=== PATIENT | male | born 1955 | race Caucasian/White ===

== ENCOUNTER 2017-07-14 19:53 | Inpatient (IN) | payer OTHER ==
[~2017-07-14] VITALS: Ht 177.8 cm; Wt 86.4 kg
[2017-07-14] MEDS ORDERED: SOD CHLORIDE 0.9% 1,000 ML IV STA (20:26)
[2017-07-14] MEDS ORDERED: ASPIRIN 81 MG TAB PO ONE (20:30)
[2017-07-14] MEDS ORDERED: ENALAPRILAT 1.25 MG INJ IV ONE (20:30)
[2017-07-14] MEDS ORDERED: NITROGLYCERIN (SL) 0.4 MG TAB SL ONE (20:30)
[2017-07-14 20:55] LABS: BASOPHILS % 0.6 % (0.0-2.0); EOSINOPHILS % 0.6 % (0.0-7.0); HEMATOCRIT 43.7 % (42.0-52.0); HEMOGLOBIN 14.5 g/dl (14.0-18.0); LYMPHOCYTES # 1.5 10^3/ul (0.8-2.9); LYMPHOCYTES % 21.1 % (15.0-51.0); MEAN CORPUSCULAR HEMOGLOBIN 29.7 pg (29.0-33.0); MEAN CORPUSCULAR HGB CONC 33.2 g/dl (32.0-37.0); MEAN CORPUSCULAR VOLUME 89.4 fl (82.0-101.0); MEAN PLATELET VOLUME 10.6 fl (7.4-10.4); MONOCYTE # 0.4 10^3/ul (0.3-0.9); NEUTROPHILS % 71.4 % (39.0-77.0); PLATELET COUNT 273 10^3/UL (140-415); RED BLOOD COUNT 4.89 10^6/ul (4.70-6.10); RED CELL DISTRIBUTION WIDTH 13.1 % (11.5-14.5)
[2017-07-14 21:02] LABS: ALANINE AMINOTRANSFERASE 37 IU/L (13-69); ALBUMIN 4.9 g/dl (3.3-4.9); ALBUMIN/GLOBULIN RATIO 1.63; ALKALINE PHOSPHATASE 101 IU/L (42-121); ANION GAP 18 (8-16); ASPARTATE AMINO TRANSFERASE 49 IU/L (15-46); BILIRUBIN,INDIRECT 0.1 mg/dl (0-1.1); BILIRUBIN,TOTAL 0.1 mg/dl (0.2-1.3); BLOOD UREA NITROGEN 13 mg/dl (7-20); CALCIUM 10.2 mg/dl (8.4-10.2); CARBON DIOXIDE 24 mmol/L (21-31); CHLORIDE 112 mmol/L (97-110); CREATININE 1.14 mg/dl (0.61-1.24); GLUCOSE 84 mg/dl (70-220); POTASSIUM 4.5 mmol/L (3.5-5.1); SODIUM 149 mmol/L (135-144); TOTAL PROTEIN 7.9 g/dl (6.1-8.1)
--- NOTE | 2017-07-14 21:02 | RADRPT ---
PROCEDURE: XR Chest. CLINICAL INDICATION: Abdominal and chest pain. TECHNIQUE: Single frontal view. COMPARISON: None. FINDINGS: There is mild atelectasis at the lung bases. The lungs are otherwise clear. The heart size is normal. There is no pleural effusion. There is no pneumothorax. IMPRESSION: 1. Mild atelectasis at the lung bases. 2. Otherwise normal chest x-ray. RPTAT: QQ .Michael Ron MD, MD Date Time Electronically viewed and signed by .Michael Ron MD, MD on 07/14/2017 21:02 .R/
[2017-07-14 21:13] LABS: B-TYPE NATRIURETIC PEPTIDE 146 PG/ML (0-125); TROPONIN-I < 0.012 ng/ml (0.00-0.12)
[2017-07-14] MEDS ORDERED: ACETAMINOPHEN 500 MG TAB PO ONE (21:41)
[2017-07-14 22:00] VITALS: TEMP 98.8
[2017-07-14] MEDS ORDERED: OXYCODONE/ACETAMINOPHEN (5/325) TAB PO ONE (22:30)
[2017-07-14 22:54] VITALS: PULSE 56
[2017-07-14 22:59] VITALS: Ht 177.8 cm; Wt 86.4 kg
--- NOTE | 2017-07-14 23:04 | ERA ---
ER Documentation Chief Complaint Date/Time DATE: 07/14/17 TIME: 22:58 Chief Complaint 07/12 CP radiating to L arm HPI 62-year-old man presents with pressure-like chest discomfort left-sided radiating down the left arm, he states it feels like there are 2 people sitting on his chest. Symptoms began earlier today while he was working, he works in construction. Patient denies similar episodes. He is a longtime tobacco smoker and continues to chew tobacco but quit cigarettes about a year ago. He denies shortness of breath, no cough, no fevers or chills, no vomiting or diarrhea. ROS All systems reviewed and are negative except as per history of present illness. Medications Home Meds No Active Prescriptions or Reported Meds Allergies Allergies: Coded Allergies: No Known Allergy (Unverified , 07/14/17) PMhx/Soc None FmHx Family History: No diabetes Physical Exam Vitals Vital Signs Date Time Temp Pulse Resp B/P Pulse Ox O2 Delivery O2 Flow Rate FiO2 07/14/17 22:00 98.8 63 11 155/90 99 Nasal Cannula 07/14/17 21:00 98.2 61 16 135/86 100 Room Air Nasal Cannula 07/14/17 19:55 98.8 81 20 131/94 97 Nasal Cannula 07/14/17 19:55 98.8 73 20 131/94 97 Physical Exam GENERAL: Well-developed, well-nourished, appears dehydrated, afebrile HEENT: Dry mucous membranes, pink conjunctiva, no cervical spine tenderness or step-off deformities, no goiter, no jaundice or icterus, extraocular movements intact without pain. No submandibular induration, and no pharyngeal erythema NEURO: Alert and oriented 3, cranial nerves II through XII intact bilaterally, pupils equal round reactive to light, no focal deficits or facial asymmetry, sensation intact distally Strength 5/5 in upper and lower extremities bilaterally CARDIAC: Regular rate and rhythm, no murmurs rubs or gallops LUNGS: Clear bilaterally no wheezing crackles or stridor ABDOMEN: Soft nontender, no guarding, no rigidity, no rebound, no psoas sign no obturator sign. Normoactive bowel sounds SKIN: Warm and dry to touch, no abrasions, contusions, or hematomas, no lacerations, no ecchymosis, no target lesions, and without ulcers EXTREMITIES: No clubbing cyanosis or edema, calves are bilaterally symmetrical, no Homans sign, no popliteal cord sign. Distal pulses equal and bilateral PSYCH: Normal affect without agitation or irritability Result Diagram: 07/14/17199907/14/171999 Results 24 hrs Laboratory Tests Test 07/14/17 20:00 White Blood Count 7.010^3/ul Red Blood Count 4.8910^6/ul Hemoglobin 14.5g/dl Hematocrit 43.7% Mean Corpuscular Volume 89.4fl Mean Corpuscular Hemoglobin 29.7pg Mean Corpuscular Hemoglobin Concent 33.2g/dl Red Cell Distribution Width 13.1% Platelet Count 01411^3/UL Mean Platelet Volume 10.6fl Neutrophils % 71.4% Lymphocytes % 21.1% Monocytes % 6.0% Eosinophils % 0.6% Basophils % 0.6% Nucleated Red Blood Cells % 0.0/100WBC Neutrophils # 5.010^3/ul Lymphocytes # 1.510^3/ul Monocytes # 0.410^3/ul Eosinophils # 0.010^3/ul Basophils # 0.010^3/ul Nucleated Red Blood Cells # 0.010^3/ul Sodium Level 149mmol/L Potassium Level 4.5mmol/L Chloride Level 112mmol/L Carbon Dioxide Level 24mmol/L Anion Gap 18 Blood Urea Nitrogen 13mg/dl Creatinine 1.14mg/dl Glucose Level 84mg/dl Calcium Level 10.2mg/dl Total Bilirubin 0.1mg/dl Direct Bilirubin 0.00mg/dl Indirect Bilirubin 0.1mg/dl Aspartate Amino Transf (AST/SGOT) 49IU/L Alanine Aminotransferase (ALT/SGPT) 37IU/L Alkaline Phosphatase 101IU/L Troponin I < 0.012ng/ml B-Type Natriuretic Peptide 146PG/ML Total Protein 7.9g/dl Albumin 4.9g/dl Globulin 3.00g/dl Albumin/Globulin Ratio 1.63 Lipase 120U/L Current Medications Medications (Trade) Dose Ordered Sig/Brown Route PRN Reason Start Time Stop Time Status Last Admin Dose Admin Aspirin (Aspirin) 324 mg ONCE ONCE PO 07/14/17 20:30 07/14/17 20:31 DC 07/14/17 20:33 Nitroglycerin (Nitroglycerin (Sl Tab) 0.4 Mg) 1 tab ONCE ONCE SL 07/14/17 20:30 07/14/17 20:31 DC 07/14/17 20:32 Enalaprilat 1.25 mg 1.25 mg ONCE ONCE IV 07/14/17 20:30 07/14/17 20:31 DC 07/14/17 20:33 Sodium Chloride (NS) 1,000 ml @ 1,000 mls/hr Q1H STAT IV 07/14/17 20:26 07/14/17 21:25 DC 07/14/17 20:32 Acetaminophen (Tylenol Tab) 1,000 mg ONCE ONCE PO 07/14/17 21:41 07/14/17 21:42 DC 07/14/17 21:48 Procedures/MDM IV line was established patient was placed on cardiac nurse specialist rhythm strip revealed a sinus rhythm at about 80 bpm with upright P and T waves. Patient was afebrile. EKG performed, read by me: 87 bpm, normal sinus rhythm, normal axis, no acute ST segment changes, narrow QRS complex, with good R-wave progression in precordial leads. Chest X-ray 1V Interpreted by me: Soft Tissue: No acute abnormalities Bones: No acute abnormalities Mediastinum/Cardiac Silhouette/Lungs: No acute abnormalities I administered 1 L normal saline patient, aspirin 324 mg p.o. for cardioprotective measures, nitroglycerin 0.4 mg sublingual and enalapril 1.25 mg IV 1 for hypertension. Patient also received Toradol 15 mg IV for pain followed by Percocet 1 tablet p.o. for continued chest pain. CBC and electrolytes are normal, liver function tests were normal, troponin was negative. Patient will be admitted to telemetry setting for continued medical management cardiology consultation. Departure Diagnosis: Primary Impression: Chest pain Qualified Code: R07.9 - Chest pain, unspecified type Additional Impressions: Dehydration Hypertension Qualified Code: I10 - Hypertension, unspecified type Condition: DARRIUS Her MD Jul 14, 2017 23:04
[2017-07-15] VITALS (12 sets, daily range): BP systolic 117–145; BP diastolic 67–95; PULSE 53–72; RESP 17–20
[2017-07-15] MEDS: morphine 2 MG INJ IV PRN ×7 (00:19→23:18)
--- NOTE | 2017-07-15 07:15 | HP ---
Date/Time of Note Date/Time of Note DATE: 07/15/17 TIME: 07:11 Assessment/Plan VTE Prophylaxis VTE Prophylaxis Intervention: heparin Lines/Catheters IV Catheter Type (from Nrs): Peripheral IV Urinary Cath still in place: No Assessment/Plan Assessment/Plan ASSESSMENT 62-year-old male with no significant past medical history who presented with acute onset chest pain, need to rule out ACS PLAN Continue telemetry monitoring Trend troponin 2D echo and cardiology consult Supplemental oxygen, beta-adilene, aspirin with as needed nitro morphine Check A1c, fasting lipid and TSH HPI/ROS Admit Date/Time Admit Date/Time Jul 14, 2017 at 22:05 Hx of Present Illness This is a 62-year-old male with no significant past medical history who presented to the ER complaining of sudden onset of chest pain. Pain was located in the mid chest and slightly left-sided with radiation to his left arm. Denied shortness of breath, nausea, vomiting or diaphoresis. Patient not sure if it is exertional. 1 presents to the ER, vitals stable. First troponin is negative and EKG was no ST-T wave abnormalities. PMH/Family/Social Social History Smoking Status: Former smoker Exam/Review of Systems Vital Signs Vitals Vital Signs Date Time Temp Pulse Resp B/P Pulse Ox O2 Delivery O2 Flow Rate FiO2 07/15/17 04:51 59 07/15/17 04:42 98.0 20 117/72 97 07/14/17 22:00 Nasal Cannula Intake and Output 07/14/17 07/14/17 07/15/17 14:59 22:59 06:59 Intake Total 350 ml Balance 350 ml Exam Constitutional: alert, oriented, well developed Head: atraumatic, normocephalic Eyes: EOMI Respiratory: clear to auscultation, normal air movement Cardiovascular: nl pulses, regular rate and rhythm Gastrointestinal: non-tender, soft Extremities: normal pulses Labs Result Diagram: 07/14/17199907/14/171999 Medications Medications Current Medications Aspirin (Halfprin) 81 mg DAILY PO ; Start 07/15/17 at 09:00 Metoprolol Tartrate (Lopressor) 25 mg BID PO ; Start 07/15/17 at 09:00 Nitroglycerin (Nitroglycerin (Sl Tab) 0.4 Mg) 1 tab Q5M PRN SL ANGINA; Start 07/14/17 at 23:30 Morphine Sulfate (morphine) 2 mg Q4H PRN IV PAIN Last administered on t 04:21; Admin Dose 2 MG; Start 07/14/17 at 23:30 Enoxaparin Sodium (Lovenox) 40 mg DAILY SC ; Start 07/15/17 at 09:00 Nicotine (Nicoderm 21 Mg/ 24hr) 1 patch DAILY TRANSDERM ; Start 07/15/17 at 09: 00 Influenza Virus Vaccine (Fluzone) 0.5 ml ONCE ONCE IM* ; Start 07/16/17 at 09: 00; Stop 07/16/17 at 09:01 TEJAL ALMANZA MD Jul 15, 2017 07:15
[2017-07-15 08:05] LABS: BASOPHIL # 0.1 10^3/ul (0.0-0.1); EOSINOPHILS # 0.1 10^3/ul (0.0-0.5); EOSINOPHILS % 1.8 % (0.0-7.0); HEMATOCRIT 40.1 % (42.0-52.0); LYMPHOCYTES # 1.8 10^3/ul (0.8-2.9); LYMPHOCYTES % 36.2 % (15.0-51.0); MEAN CORPUSCULAR HEMOGLOBIN 29.3 pg (29.0-33.0); MEAN CORPUSCULAR HGB CONC 32.4 g/dl (32.0-37.0); MEAN CORPUSCULAR VOLUME 90.3 fl (82.0-101.0); MEAN PLATELET VOLUME 10.1 fl (7.4-10.4); MONOCYTE # 0.4 10^3/ul (0.3-0.9); MONOCYTES % 8.2 % (0.0-11.0); NEUTROPHIL # 2.6 10^3/ul (1.6-7.5); NEUTROPHILS % 52.6 % (39.0-77.0); PLATELET COUNT 221 10^3/UL (140-415); RED BLOOD COUNT 4.44 10^6/ul (4.70-6.10); RED CELL DISTRIBUTION WIDTH 13.2 % (11.5-14.5); WHITE BLOOD COUNT 4.9 10^3/ul (4.8-10.8)
[2017-07-15] MEDS: ASPIRIN (EC) 81 MG TAB PO SCH (08:23)
[2017-07-15] MEDS: METOPROLOL 25 MG TAB PO SCH ×2 (08:26→20:50)
[2017-07-15] MEDS: NICOTINE (21 MG/24 HR) PATCH TRANSDERM SCH (08:27)
[2017-07-15] MEDS: ENOXAPARIN 40 MG/0.4 ML SYG SC SCH (08:30)
[2017-07-15 08:37] LABS: ALBUMIN 3.6 g/dl (3.3-4.9); ALBUMIN/GLOBULIN RATIO 1.2; BILIRUBIN,INDIRECT 0.1 mg/dl (0-1.1); BILIRUBIN,TOTAL 0.1 mg/dl (0.2-1.3); CALCIUM 9.4 mg/dl (8.4-10.2); CHOL/HDL RATIO 4.8 RATIO; CREATININE 0.97 mg/dl (0.61-1.24); MAGNESIUM 1.9 mg/dl (1.7-2.5); PHOSPHORUS 4.4 mg/dl (2.5-4.9); POTASSIUM 4.1 mmol/L (3.5-5.1); TOTAL PROTEIN 6.6 g/dl (6.1-8.1)
[2017-07-15 09:06] LABS: THYROID STIMULATING HORMONE 5.45 MIU/L (0.465-4.680)
[2017-07-15] MEDS: NITROGLYCERIN (SL) 0.4 MG TAB SL PRN ×2 (10:39→11:05)
--- NOTE | 2017-07-15 14:50 | PN ---
Date/Time of Note Date/Time of Note DATE: 07/15/17 TIME: 14:44 Assessment/Plan VTE Prophylaxis VTE Prophylaxis Intervention: LMWH Lines/Catheters IV [facility]from [facility] Saline Lock Urinary Cath still in place: No Assessment/Plan Assessment/Plan 1. Chest pain, r/o ACS, negative troponin, cardiology consult with Dr. Ortega 2. Tobacco dependence, on nicotine patch 3. DVT prophylaxis: lovenox Subjective 24 Hr Interval Summary Free Text/Dictation still has intermittent chest pain, 5 minutes up to 30 minutes Exam/Review of Systems Vital Signs Vitals Vital Signs Date Time Temp Pulse Resp B/P Pulse Ox O2 Delivery O2 Flow Rate FiO2 07/15/17 12:10 65 07/15/17 11:29 97.8 18 127/81 96 07/15/17 09:46 Nasal Cannula 2.0 Intake and Output 07/14/17 07/14/17 07/15/17 15:00 23:00 07:00 Intake Total 350 ml Balance 350 ml Exam Constitutional: alert, oriented, well developed Psych: nl mood/affect, no complaints Head: atraumatic, normocephalic Eyes: EOMI, PERRL, nl conjunctiva, nl lids ENMT: nl external ears & nose, nl lips & teeth, nl nasal mucosa & septum Neck: non-tender, supple Respiratory: clear to auscultation, normal air movement, No congested cough, No crackles/rales, No diminished breath sounds, No intercostal retraction, No labored breathing, No other, No respirations, No tactile fremitus, No wheezing Cardiovascular: nl pulses, regular rate and rhythm, No S3, No S4, No bruits, No diastolic murmur, No edema, No gallop, No irregular rhythm, No jugular venous distention (JVD), No murmurs/extra sounds, No other, No rub, No systolic murmur Gastrointestinal: nl liver, spleen, non-tender, soft, No ascites, No bowel sounds, No distended, No firm, No hepatomegaly, No mass , No other, No rebound or guarding, No splenomegaly, No surgical scars, No tender Musculoskeletal: nl extremities to inspection Extremities: normal pulses, No calf tenderness, No clubbing, No cyanosis, No edema, No other, No palpable cord, No pitting pedal edema, No tenderness Neurological: STAPLE SIDE LASTER II-XII intact, nl mental status, nl speech, nl strength Skin: nl turgor Lymph: nl lymph nodes Results Result Diagram: 07/15/17 0728 07/15/17 0729 Results 24 hrs Laboratory Tests Test 07/14/17 20:00 07/15/17 02:15 07/15/17 07:28 07/15/17 07:29 White Blood Count 7.0 4.9 # Red Blood Count 4.89 4.44 L Hemoglobin 14.5 13.0 L Hematocrit 43.7 40.1 L Mean Corpuscular Volume 89.4 90.3 Mean Corpuscular Hemoglobin 29.7 29.3 Mean Corpuscular Hemoglobin Concent 33.2 32.4 Red Cell Distribution Width 13.1 13.2 Platelet Count 273 221 Mean Platelet Volume 10.6 H 10.1 Neutrophils % 71.4 52.6 Lymphocytes % 21.1 36.2 Monocytes % 6.0 8.2 Eosinophils % 0.6 1.8 Basophils % 0.6 1.0 Nucleated Red Blood Cells % 0.0 0.0 Neutrophils # 5.0 2.6 Lymphocytes # 1.5 1.8 Monocytes # 0.4 0.4 Eosinophils # 0.0 0.1 Basophils # 0.0 0.1 Nucleated Red Blood Cells # 0.0 0.0 Sodium Level 149 H 141 Potassium Level 4.5 4.1 Chloride Level 112 H 111 H Carbon Dioxide Level 24 25 Anion Gap 18 H 9 # Blood Urea Nitrogen 13 13 Creatinine 1.14 0.97 Glucose Level 84 83 Calcium Level 10.2 9.4 Total Bilirubin 0.1 L 0.1 L Direct Bilirubin 0.00 0.00 Indirect Bilirubin 0.1 0.1 Aspartate Amino Transf (AST/SGOT) 49 H 24 # Alanine Aminotransferase (ALT/SGPT) 37 32 Alkaline Phosphatase 101 71 Troponin I < 0.012 < 0.012 < 0.012 B-Type Natriuretic Peptide 146 H Total Protein 7.9 6.6 # Albumin 4.9 3.6 # Globulin 3.00 3.00 Albumin/Globulin Ratio 1.63 1.20 Lipase 120 Hemoglobin A1c 5.3 Phosphorus Level 4.4 Magnesium Level 1.9 Triglycerides Level 72 Cholesterol Level 178 LDL Cholesterol, Calculated 127 HDL Cholesterol 37 Cholesterol/HDL Ratio 4.8 Thyroid Stimulating Hormone (TSH) 5.450 H Medications Medications Current Medications Aspirin (Halfprin) 81 mg DAILY PO Last administered on 07/15/17 08:23; Admin Dose 81 MG; Start 07/15/17 at 09:00 Metoprolol Tartrate (Lopressor) 25 mg BID PO ; Start 07/15/17 at 09:00 Nitroglycerin (Nitroglycerin (Sl Tab) 0.4 Mg) 1 tab Q5M PRN SL ANGINA Last administered on 07/15/17 11:05; Admin Dose 1 TAB; Start 07/14/17 at 23:30 Morphine Sulfate (morphine) 2 mg Q4H PRN IV PAIN Last administered on 12:35; Admin Dose 2 MG; Start 07/14/17 at 23:30 Enoxaparin Sodium (Lovenox) 40 mg DAILY SC Last administered on 07/15/17 08: 30; Admin Dose 40 MG; Start 07/15/17 at 09:00 Nicotine (Nicoderm 21 Mg/ 24hr) 1 patch DAILY TRANSDERM Last administered on 08:27; Admin Dose 1 PATCH; Start 07/15/17 at 09:00 Influenza Virus Vaccine (Fluzone) 0.5 ml ONCE ONCE IM* ; Start 07/16/17 at 09: 00; Stop 07/16/17 at 09:01 RONALD LIN MD Jul 15, 2017 14:50
[2017-07-15] MEDS: PANTOPRAZOLE 40 MG INJ IV SCH (16:21)
[2017-07-15] MEDS ORDERED: morphine 2 MG INJ IV PRN (17:30)
[2017-07-15] MEDS: ISOSORBIDE DINITRATE 20 MG TAB PO SCH (20:50)
[2017-07-16] VITALS (11 sets, daily range): BP systolic 111–127; BP diastolic 66–82; PULSE 43–73; RESP 16–21
[2017-07-16] MEDS: PANTOPRAZOLE 40 MG INJ IV SCH (05:16)
[2017-07-16] MEDS: morphine 2 MG INJ IV PRN ×5 (05:16→20:53)
[2017-07-16] MEDS: ISOSORBIDE DINITRATE 20 MG TAB PO SCH ×3 (08:36→20:38)
[2017-07-16] MEDS: ASPIRIN (EC) 81 MG TAB PO SCH (08:36)
[2017-07-16] MEDS: NICOTINE (21 MG/24 HR) PATCH TRANSDERM SCH (08:36)
[2017-07-16] MEDS: METOPROLOL 25 MG TAB PO SCH ×2 (08:36→20:38)
[2017-07-16] MEDS: ENOXAPARIN 40 MG/0.4 ML SYG SC SCH (08:38)
[2017-07-16] MEDS ORDERED: INFLUENZA VIRUS VACCINE 0.5 ML (DISPENSING) IM* ONE (09:00)
--- NOTE | 2017-07-16 13:47 | CONS ---
Date/Time of Note Date/Time of Note DATE: 07/16/17 TIME: 13:46 Assessment/Plan Assessment/Plan Additional Assessment/Plan 1. CP - R/O MD, will facilitate stress test for tomorrow as pt still with CP now (trop negative) 2. Abn ECG - non-spc St-T changes 3. HTN - modest Rx Consultation Date/Type/Reason Admit Date/Time Jul 14, 2017 at 22:05 Initial Consult Date 24 HR Interval Summary Free Text/Dictation will facilitate stress test for tomorrow as pt still with CP now (trop negative) ROS: No fever, no chills, no nausea, no vomiting, no diarrhea/constipation No recent weight changes + chest pain, no PND, no orthopnea No dizziness, blurred vision No thirst, no heat or cold intolerance Exam/Review of Systems Vital Signs Vitals Vital Signs Date Time Temp Pulse Resp B/P Pulse Ox O2 Delivery O2 Flow Rate FiO2 07/16/17 12:00 62 07/16/17 12:00 98.0 19 120/72 96 07/15/17 20:00 Nasal Cannula 2.0 Intake and Output 07/15/17 07/15/17 07/16/17 15:00 23:00 07:00 Intake Total 1000 ml 500 ml Balance 1000 ml 500 ml Exam General: WN/WD/NAD, AOx 3 HEENT: Unicetric/atraumatic/EOMI (follow commands) NECK: JVD elevated, no thyromegaly Lymph: no lymphadenopathy HEART: regular with no S3, II/ systolic murmur at apex LUNGS: Coarse sounds ABD: soft, NT, ND, +BS : Intact Neuro: non focal SKIN: chronic changes EXT: trace edema Results Result Diagram: 07/15/1772707/15/17728 Results 24 hrs Laboratory Tests Test 07/15/17 20:45 Troponin I < 0.012 Free Thyroxine 0.87 Medications Medications Current Medications Aspirin (Halfprin) 81 mg DAILY PO Last administered on 07/16/17 08:36; Admin Dose 81 MG; Start 07/15/17 at 09:00 Metoprolol Tartrate (Lopressor) 25 mg BID PO Last administered on 07/15/17 20 :50; Admin Dose 25 MG; Start 07/15/17 at 09:00 Nitroglycerin (Nitroglycerin (Sl Tab) 0.4 Mg) 1 tab Q5M PRN SL ANGINA Last administered on 07/15/17 11:05; Admin Dose 1 TAB; Start 07/14/17 at 23:30 Enoxaparin Sodium (Lovenox) 40 mg DAILY SC Last administered on 07/16/17 08: 38; Admin Dose 40 MG; Start 07/15/17 at 09:00 Nicotine (Nicoderm 21 Mg/ 24hr) 1 patch DAILY TRANSDERM Last administered on 08:36; Admin Dose 1 PATCH; Start 07/15/17 at 09:00 Pantoprazole (Protonix Iv) 40 mg DAILY@06 IV Last administered on 07/16/17 05 :16; Admin Dose 40 MG; Start 07/15/17 at 15:00 Morphine Sulfate (morphine) 2 mg Q3H PRN IV PAIN Last administered on 12:25; Admin Dose 2 MG; Start 07/15/17 at 16:00 Isosorbide Dinitrate (Isordil) 20 mg TID PO Last administered on 07/16/17 12: 25; Admin Dose 20 MG; Start 07/15/17 at 21:00 RUTHIE GREEN MD Jul 16, 2017 13:47
--- NOTE | 2017-07-16 14:28 | PN ---
Date/Time of Note Date/Time of Note DATE: 07/16/17 TIME: 14:26 Assessment/Plan VTE Prophylaxis VTE Prophylaxis Intervention: heparin Lines/Catheters IV Catheter Type (from Nrs): Saline Lock Urinary Cath still in place: No Assessment/Plan Chief Complaint/Hosp Course Patient is a 62-year-old gentleman with no significant past medical history except for nicotine use who presents with chest pain radiating to left arm Assessment and plan Chest pain Left arm pain Substernal pain Tobacco dependence Bradycardia, astigmatic Mild anemia, monitor Subclinical hypothyroidism, monitor -Cardiology consulted, could not perform stress test today due to logistical error, n.p.o. after midnight and reorder stress test -Troponins negative, questionable true cardiac origin of chest pain. Will order IV famotidine, continue Protonix, GI cocktail, Robaxin for possible musculoskeletal -Monitor blood pressure and chest pain -Cardiology recommendations appreciated -Pain control as needed Problems: Subjective 24 Hr Interval Summary Free Text/Dictation intermittent episodes of chest pain Exam/Review of Systems Vital Signs Vitals Vital Signs Date Time Temp Pulse Resp B/P Pulse Ox O2 Delivery O2 Flow Rate FiO2 07/16/17 12:00 62 07/16/17 12:00 98.0 19 120/72 96 07/15/17 20:00 Nasal Cannula 2.0 Intake and Output 07/15/17 07/15/17 07/16/17 15:00 23:00 07:00 Intake Total 1000 ml 500 ml Balance 1000 ml 500 ml Exam Physical exam General: Patient is laying in bed and answers questions appropriately Mentation: Patient is alert and oriented 4, Head: Normocephalic atraumatic Eyes: EOMI, pupils reactive to light Neck: Supple, nontender, midline Respiratory: Clear to auscultation bilaterally Cardiovascular: regular rate, no obvious murmurs Gastrointestinal: non-tender to palpation, bowel sounds heard. Neurological: Moves all extremities spontaneously Skin: No new skin lesions Results Result Diagram: 07/15/1772707/15/17 07 Results 24 hrs Laboratory Tests Test 07/15/17 20:45 Troponin I < 0.012 Free Thyroxine 0.87 Medications Medications Current Medications Aspirin (Halfprin) 81 mg DAILY PO Last administered on 07/16/17t 08:36; Admin Dose 81 MG; Start 07/15/17 at 09:00 Metoprolol Tartrate (Lopressor) 25 mg BID PO Last administered on 07/15/17 20 :50; Admin Dose 25 MG; Start 07/15/17 at 09:00 Nitroglycerin (Nitroglycerin (Sl Tab) 0.4 Mg) 1 tab Q5M PRN SL ANGINA Last administered on 07/15/17 11:05; Admin Dose 1 TAB; Start 07/14/17 at 23:30 Enoxaparin Sodium (Lovenox) 40 mg DAILY SC Last administered on 07/16/17 08: 38; Admin Dose 40 MG; Start 07/15/17 at 09:00 Nicotine (Nicoderm 21 Mg/ 24hr) 1 patch DAILY TRANSDERM Last administered on 08:36; Admin Dose 1 PATCH; Start 07/15/17 at 09:00 Pantoprazole (Protonix Iv) 40 mg DAILY@06 IV Last administered on 07/16/17 05 :16; Admin Dose 40 MG; Start 07/15/17 at 15:00 Morphine Sulfate (morphine) 2 mg Q3H PRN IV PAIN Last administered on 12:25; Admin Dose 2 MG; Start 07/15/17 at 16:00 Isosorbide Dinitrate (Isordil) 20 mg TID PO Last administered on 07/16/17 12: 25; Admin Dose 20 MG; Start 07/15/17 at 21:00 Methocarbamol (Robaxin) 1,000 mg TID PO ; Start 07/16/17 at 21:00 Famotidine (Pepcid Iv) 20 mg ONCE ONCE IV ; Start 07/16/17 at 14:30; Stop at 14:31 Miscellaneous Medication (Gi Cocktail (2)) 40 ml ONCE ONCE PO ; Start at 14:30; Stop 07/16/17 at 14:31 DARRIUS LY Jul 16, 2017 14:28
[2017-07-16] MEDS ORDERED: FAMOTIDINE 20 MG INJ IV ONE (14:30)
[2017-07-16] MEDS ORDERED: LIDOCAINE/MYLANTA 40 ML BTL PO ONE (14:30)
[2017-07-16] MEDS: METHOCARBAMOL 500 MG TAB PO SCH (20:37)
[2017-07-17] VITALS (11 sets, daily range): BP systolic 115–139; BP diastolic 62–85; PULSE 52–75; RESP 18–20
[2017-07-17] MEDS: morphine 2 MG INJ IV PRN ×3 (03:28→11:17)
[2017-07-17] MEDS: PANTOPRAZOLE (EC) 40 MG TAB PO SCH (05:52)
[2017-07-17 06:23] LABS: BASOPHILS % 0.7 % (0.0-2.0); EOSINOPHILS # 0.1 10^3/ul (0.0-0.5); EOSINOPHILS % 1.6 % (0.0-7.0); HEMATOCRIT 40.9 % (42.0-52.0); HEMOGLOBIN 13.5 g/dl (14.0-18.0); LYMPHOCYTES # 1.7 10^3/ul (0.8-2.9); LYMPHOCYTES % 29.6 % (15.0-51.0); MEAN CORPUSCULAR VOLUME 90.9 fl (82.0-101.0); MEAN PLATELET VOLUME 10.3 fl (7.4-10.4); MONOCYTE # 0.5 10^3/ul (0.3-0.9); MONOCYTES % 8.8 % (0.0-11.0); NEUTROPHIL # 3.3 10^3/ul (1.6-7.5); NEUTROPHILS % 58.9 % (39.0-77.0); PLATELET COUNT 221 10^3/UL (140-415); RED CELL DISTRIBUTION WIDTH 13.2 % (11.5-14.5); WHITE BLOOD COUNT 5.6 10^3/ul (4.8-10.8)
[2017-07-17] MEDS: METHOCARBAMOL 500 MG TAB PO SCH ×2 (08:11→12:16)
[2017-07-17] MEDS: ASPIRIN (EC) 81 MG TAB PO SCH (08:11)
[2017-07-17] MEDS: NICOTINE (21 MG/24 HR) PATCH TRANSDERM SCH (08:12)
[2017-07-17] MEDS: METOPROLOL 25 MG TAB PO SCH ×2 (08:12→20:46)
[2017-07-17] MEDS: ISOSORBIDE DINITRATE 20 MG TAB PO SCH ×3 (08:12→20:46)
[2017-07-17] MEDS: ENOXAPARIN 40 MG/0.4 ML SYG SC SCH (08:13)
[2017-07-17 08:42] LABS: CALCIUM 9.4 mg/dl (8.4-10.2); CREATININE 1.08 mg/dl (0.61-1.24); MAGNESIUM 1.9 mg/dl (1.7-2.5); PHOSPHORUS 4.1 mg/dl (2.5-4.9); POTASSIUM 4.5 mmol/L (3.5-5.1)
[2017-07-17] MEDS ORDERED: REGADENOSON 0.4 MG/5 ML SYG ONE (12:34)
--- NOTE | 2017-07-17 13:02 | PN ---
Date/Time of Note Date/Time of Note DATE: 07/17/17 TIME: 13:00 Assessment/Plan VTE Prophylaxis VTE Prophylaxis Intervention: LMWH Lines/Catheters IV Catheter Type (from Nrs): Saline Lock Urinary Cath still in place: No Assessment/Plan Chief Complaint/Hosp Course Patient is a 62-year-old gentleman with no significant past medical history except for nicotine use who presents with chest pain radiating to left arm Assessment and plan Chest pain Left arm pain Substernal pain Tobacco dependence Bradycardia, astigmatic Mild anemia, monitor Subclinical hypothyroidism, monitor -Cardiology consulted, stress test results pending -Troponins negative, questionable true cardiac origin of chest pain. GI cocktail did not help, less likely GI etiology. Will attempt to change robaxin to soma for musculoskeletal. -Monitor blood pressure and chest pain -Cardiology recommendations appreciated -Pain control as needed DISPO: monitor overnight for chest pain Problems: Subjective 24 Hr Interval Summary Free Text/Dictation still has intermittent chest pain. Exam/Review of Systems Vital Signs Vitals Vital Signs Date Time Temp Pulse Resp B/P Pulse Ox O2 Delivery O2 Flow Rate FiO2 07/17/17 12:35 63 07/17/17 11:58 98.2 18 129/79 95 07/16/17 20:00 Nasal Cannula 2.0 Intake and Output 07/16/17 07/16/17 07/17/17 15:00 23:00 07:00 Intake Total 600 ml 240 ml Balance 600 ml 240 ml Exam Physical exam General: Patient is laying in bed and answers questions appropriately Mentation: Patient is alert and oriented 4, Head: Normocephalic atraumatic Eyes: EOMI, pupils reactive to light Neck: Supple, nontender, midline Respiratory: Clear to auscultation bilaterally Cardiovascular: regular rate, no obvious murmurs Gastrointestinal: non-tender to palpation, bowel sounds heard. Neurological: Moves all extremities spontaneously Skin: No new skin lesions Results Result Diagram: 07/17/17 0550 07/17/17 0550 Results 24 hrs Laboratory Tests Test 07/17/17 05:50 White Blood Count 5.6 Red Blood Count 4.50 L Hemoglobin 13.5 L Hematocrit 40.9 L Mean Corpuscular Volume 90.9 Mean Corpuscular Hemoglobin 30.0 Mean Corpuscular Hemoglobin Concent 33.0 Red Cell Distribution Width 13.2 Platelet Count 221 Mean Platelet Volume 10.3 Neutrophils % 58.9 Lymphocytes % 29.6 Monocytes % 8.8 Eosinophils % 1.6 Basophils % 0.7 Nucleated Red Blood Cells % 0.0 Neutrophils # 3.3 Lymphocytes # 1.7 Monocytes # 0.5 Eosinophils # 0.1 Basophils # 0.0 Nucleated Red Blood Cells # 0.0 Sodium Level 144 Potassium Level 4.5 Chloride Level 109 Carbon Dioxide Level 26 Anion Gap 14 Blood Urea Nitrogen 17 Creatinine 1.08 Glucose Level 86 Calcium Level 9.4 Phosphorus Level 4.1 Magnesium Level 1.9 Medications Medications Current Medications Aspirin (Halfprin) 81 mg DAILY PO Last administered on 07/17/17 08:11; Admin Dose 81 MG; Start 07/15/17 at 09:00 Metoprolol Tartrate (Lopressor) 25 mg BID PO Last administered on 07/17/17 08 :12; Admin Dose 25 MG; Start 07/15/17 at 09:00 Nitroglycerin (Nitroglycerin (Sl Tab) 0.4 Mg) 1 tab Q5M PRN SL ANGINA Last administered on 07/15/17 11:05; Admin Dose 1 TAB; Start 07/14/17 at 23:30 Enoxaparin Sodium (Lovenox) 40 mg DAILY SC Last administered on 07/17/17 08: 13; Admin Dose 40 MG; Start 07/15/17 at 09:00 Nicotine (Nicoderm 21 Mg/ 24hr) 1 patch DAILY TRANSDERM Last administered on 08:12; Admin Dose 1 PATCH; Start 07/15/17 at 09:00 Morphine Sulfate (morphine) 2 mg Q3H PRN IV PAIN Last administered on 11:17; Admin Dose 2 MG; Start 07/15/17 at 16:00 Isosorbide Dinitrate (Isordil) 20 mg TID PO Last administered on 07/17/17 12: 15; Admin Dose 20 MG; Start 07/15/17 at 21:00 Methocarbamol (Robaxin) 1,000 mg TID PO Last administered on 07/17/17 12:16; Admin Dose 1,000 MG; Start 07/16/17 at 21:00 Pantoprazole (Protonix Tab) 40 mg DAILY@06 PO ; Start 07/17/17 at 06:00 DARRIUS LY Jul 17, 2017 13:02
[2017-07-17] MEDS: NITROGLYCERIN (SL) 0.4 MG TAB SL PRN ×2 (14:00→14:10)
--- NOTE | 2017-07-17 14:15 | CONS ---
Date/Time of Note Date/Time of Note DATE: 07/17/17 TIME: 14:13 Assessment/Plan Assessment/Plan Additional Assessment/Plan 1. CP - R/O [place], will facilitate stress test for tomorrow as pt still with CP now (trop negative) -SPECT done - will monitor results 2. Abn ECG - non-spc St-T changes 3. HTN - modest Rx, stable now 4. Pain sx - no clear cardiac cause now Consultation Date/Type/Reason Admit Date/Time Jul 14, 2017 at 22:05 24 HR Interval Summary Free Text/Dictation No ectopy on tele - s/p Stres test - will await for results ROS: No fever, no chills, no nausea, no vomiting, no diarrhea/constipation No recent weight changes Inerm chest pain, no PND, no orthopnea No dizziness, blurred vision No thirst, no heat or cold intolerance Exam/Review of Systems Vital Signs Vitals Vital Signs Date Time Temp Pulse Resp B/P Pulse Ox O2 Delivery O2 Flow Rate FiO2 07/17/17 14:00 75 18 115/66 07/17/17 11:58 98.2 95 07/16/17 20:00 Nasal Cannula 2.0 Intake and Output 07/16/17 07/16/17 07/17/17 15:00 23:00 07:00 Intake Total 600 ml 240 ml Balance 600 ml 240 ml Exam General: WN/WD/NAD, AOx 3 HEENT: Unicetric/atraumatic/EOMI (follows commands) NECK: JVD elevated, no thyromegaly Lymph: no lymphadenopathy HEART: regular with no S3, II/ systolic murmur at apex LUNGS: Coarse sounds ABD: soft, NT, ND, +BS : Intact Neuro: non focal SKIN: chronic changes EXT: trace edema Results Result Diagram: 07/17/17 0550 07/17/17 0550 Results 24 hrs Laboratory Tests Test 07/17/17 05:50 White Blood Count 5.6 Red Blood Count 4.50 L Hemoglobin 13.5 L Hematocrit 40.9 L Mean Corpuscular Volume 90.9 Mean Corpuscular Hemoglobin 30.0 Mean Corpuscular Hemoglobin Concent 33.0 Red Cell Distribution Width 13.2 Platelet Count 221 Mean Platelet Volume 10.3 Neutrophils % 58.9 Lymphocytes % 29.6 Monocytes % 8.8 Eosinophils % 1.6 Basophils % 0.7 Nucleated Red Blood Cells % 0.0 Neutrophils # 3.3 Lymphocytes # 1.7 Monocytes # 0.5 Eosinophils # 0.1 Basophils # 0.0 Nucleated Red Blood Cells # 0.0 Sodium Level 144 Potassium Level 4.5 Chloride Level 109 Carbon Dioxide Level 26 Anion Gap 14 Blood Urea Nitrogen 17 Creatinine 1.08 Glucose Level 86 Calcium Level 9.4 Phosphorus Level 4.1 Magnesium Level 1.9 Medications Medications Current Medications Aspirin (Halfprin) 81 mg DAILY PO Last administered on 07/17/17 08:11; Admin Dose 81 MG; Start 07/15/17 at 09:00 Metoprolol Tartrate (Lopressor) 25 mg BID PO Last administered on 07/17/17 08 :12; Admin Dose 25 MG; Start 07/15/17 at 09:00 Nitroglycerin (Nitroglycerin (Sl Tab) 0.4 Mg) 1 tab Q5M PRN SL ANGINA Last administered on 07/17/17 14:10; Admin Dose 1 TAB; Start 07/14/17 at 23:30 Enoxaparin Sodium (Lovenox) 40 mg DAILY SC Last administered on 07/17/17 08: 13; Admin Dose 40 MG; Start 07/15/17 at 09:00 Nicotine (Nicoderm 21 Mg/ 24hr) 1 patch DAILY TRANSDERM Last administered on 08:12; Admin Dose 1 PATCH; Start 07/15/17 at 09:00 Morphine Sulfate (morphine) 2 mg Q3H PRN IV PAIN Last administered on 11:17; Admin Dose 2 MG; Start 07/15/17 at 16:00 Isosorbide Dinitrate (Isordil) 20 mg TID PO Last administered on 07/17/17 12: 15; Admin Dose 20 MG; Start 07/15/17 at 21:00 Pantoprazole (Protonix Tab) 40 mg DAILY@06 PO ; Start 07/17/17 at 06:00 Carisoprodol (Soma) 350 mg TID PO ; Start 07/17/17 at 18:00 RUTHIE GREEN MD Jul 17, 2017 14:15
--- NOTE | 2017-07-17 14:23 | RADRPT ---
PROCEDURE: Lexiscan myocardial perfusion study CLINICAL INDICATION: 62 -year-old patient complaining of chest pain. TECHNIQUE: Lexiscan 0.4 mg intravenously separate acquisition gated myocardial perfusion SPECT usi ng Tc 99m Myoview approximately 30.0 mCi intravenously at stress and Tc-99m Myoview, approximately 1 0.0 mCi intravenously at rest was performed using the rest/stress sequence. Poststress Myoview SPEC T images were obtained in the supine position. COMPARISON: No prior studies. FINDINGS: Perfusion images reveal a moderate size moderate in degree predominantly nonreversible perfusion def ect in the inferior and inferoseptal mcpherson. Lexiscan post stress gated SPECT images demonstrate no wall motion abnormalities. IMPRESSION: 1. The type and distribution of the scintigraphic abnormalities are most consistent with a moderate size predominantly nonreversible perfusion defect in the inferior and inferoseptal mcpherson. 2. No wall motion abnormalities. 3. The left ventricle ejection fraction at stress is 55%. RPTAT: HH .Court Burrell MD, Date Time Electronically viewed and signed by .Court Burrell MD, MD on 07/17/2017 14:22 .L/
[2017-07-17] MEDS: ACETAMINOPHEN 325 MG TAB PO PRN ×2 (15:40→20:45)
[2017-07-17] MEDS: CARISOPRODOL 350 MG TAB PO SCH ×2 (17:44→20:45)
[2017-07-18] VITALS (13 sets, daily range): BP systolic 109–145; BP diastolic 62–79; PULSE 51–81; RESP 18–20
--- NOTE | 2017-07-18 01:48 | ECORPT ---
DATE OF SERVICE: LEXISCAN CARDIOLITE STRESS TEST REFERRING PHYSICIAN: Dr. Cruz REASON FOR EVALUATION: Chest pain. DESCRIPTION OF TEST: The patient heart station. He had successful Lexiscan injection. Blood pressure was 102/70. The imaging portion of the report dictated separately. Dictated By: RUTHIE GREEN MD ML/NTS Conf#: [id number] DID#: [id number] CC: TEJAL CRUZ MD;*EndCC*
[2017-07-18] MEDS: PANTOPRAZOLE (EC) 40 MG TAB PO SCH (05:37)
[2017-07-18] MEDS: ACETAMINOPHEN 325 MG TAB PO PRN ×2 (05:37→18:18)
--- NOTE | 2017-07-18 07:41 | CONS ---
DATE OF ADMISSION: 07/14/2017 DATE OF CONSULTATION: 07/15/2017 TYPE OF CONSULTATION: Cardiology. REASON FOR CONSULTATION: Chest pain, assess for acute coronary syndrome. REQUESTING PHYSICIAN: from the hospitalist service. HISTORY OF PRESENT ILLNESS: Mr. Deras is a 62-year-old male without significant past medical history who presented with complaints of sudden onset of substernal chest pain described as a pressure-like sensation not necessarily related to exertion with radiation to the left arm. Upon arrival, temper ature 98.8, blood pressure 131/94, pulse 73, respiratory rate 20, saturating 97%. The patient's lab s revealed a sodium 149, potassium 4.5, creatinine 1.1, BUN 13. Troponin negative. AST 49, lipase 120. BNP 146, TSH mildly elevated at 5.45. White blood count 7.0, hemoglobin 14.5, platelet count 273. The patient underwent a chest x-ray revealing mild atelectasis at the lung bases. The patient 's electrocardiogram with normal sinus rhythm at 87 with left axis deviation, left anterior fascicul ar block, nonspecific ST-T abnormalities. Patient subsequently admitted to the floor and since admi t to floor, has had 2 further troponins, ruling out acute myocardial infarction. The patient has on going chest pain at this time. PAST MEDICAL HISTORY: As above in HPI. MEDICATIONS CURRENTLY IN HOSPITAL: 1. Morphine p.r.n. 2. Protonix 40 mg IV daily. 3. Aspirin 81 mg daily. 4. Lopressor 25 mg p.o. b.i.d. 5. Lovenox mg subcutaneous daily. 6. Nicoderm patch. 7. Sublingual nitroglycerin. ALLERGIES: NO KNOWN DRUG ALLERGIES. SOCIAL HISTORY: No current tobacco, quit per patient the first of this year, social ETOH, no illici t drug use. FAMILY HISTORY: No history of sudden cardiac or early CAD. REVIEW OF SYSTEMS: As above in HPI. CONSTITUTIONAL: No fevers, chills. PULMONARY: Shortness of breath. CARDIOVASCULAR: Chest pain. GASTROINTESTINAL: No vomiting. GENITOURINARY: No hematuria. MUSCULOSKELETAL: Degenerative joint disease. PSYCHIATRIC: The patient denies depression. NEUROLOGIC: No documented history of CVA. PHYSICAL EXAMINATION VITAL SIGNS: Temperature 98.8, blood pressure 145/87, pulse , respiratory rate 20, saturating 97%. GENERAL: The patient is alert, awake, in no acute distress. NECK: JVP approximately 8 to 9 cm water. CHEST: Fair air movement throughout. HEART: Regular rate and rhythm. Normal S1, S2, I/ systolic murmur, nondisplaced PMI. ABDOMEN: Positive bowel sounds, soft. EXTREMITIES: No edema, 1+ pulses bilaterally, posterior tibial. LABORATORIES: Most recent from today, white count is 4.9, hemoglobin 13.0, platelet count of 221. Sodium 141, potassium 4.1, creatinine 0.9, BUN 13. Troponin negative x3, although are 5 hours apart, LDL 127, HDL 37. IMAGING STUDIES: As above in HPI. No further imaging studies for my review at this time. ELECTROCARDIOGRAM: As above in HPI. No further electrocardiograms for my review at this time. IMPRESSION: 1. Chest pain, assess for acute coronary syndrome. 2. Abnormal electrocardiogram, assess for acute coronary syndrome. 3. Hypertension, under reasonable control with some elevations recently. 4. Prior tobacco intake. 5. Increased TSH. 6. Dyslipidemia with low HDL. RECOMMENDATIONS: 1. At this time, would maintain the patient on telemetry monitoring to follow rhythm and rate close ly. 2. Would check 1 additional troponin to ensure the patient's chest pain is not due to an acute humberto nary syndrome, acute myocardial infarction. 3. Continue the patient's current beta-adilene and will initiate the patient on oral nitrates and f ollow symptomatology. 4. Check a free T4 to further assess the patient's current thyroid state. 5. Check a 2D echo to further assess patient's ejection fraction, wall motion and any major valve a bnormalities. 6. Will additionally place the patient in for a cardiac stress test to assess for the possibility o f significant obstructive coronary artery disease lending to the patient's symptoms of chest pain, E KG abnormalities and subsequently admitted to the hospital with negative troponins thus far. Thank you for allowing me to take part in the care of this patient. I will continue to follow along very closely with you with further recommendations to be made as the patient progresses through his inpatient hospital clinical course. Dictated By: JORGE PALMER/JESUS Conf#: [id number] DID#: [id number] CC: RONALD LIN MD; TEJAL ALMANZA MD;*[facility]*
[2017-07-18] MEDS: ASPIRIN (EC) 81 MG TAB PO SCH (08:57)
[2017-07-18] MEDS: ISOSORBIDE DINITRATE 20 MG TAB PO SCH ×3 (08:57→21:19)
[2017-07-18] MEDS: CARISOPRODOL 350 MG TAB PO SCH ×3 (08:58→21:20)
[2017-07-18] MEDS: METOPROLOL 25 MG TAB PO SCH ×2 (09:00→21:20)
[2017-07-18] MEDS: ENOXAPARIN 40 MG/0.4 ML SYG SC SCH (09:02)
[2017-07-18] MEDS: NICOTINE (21 MG/24 HR) PATCH TRANSDERM SCH (09:02)
--- NOTE | 2017-07-18 13:08 | CONS ---
Date/Time of Note Date/Time of Note DATE: 07/18/17 TIME: 13:04 Assessment/Plan Assessment/Plan Chief Complaint/Hosp Course IMPRESSION: 1. Chest pain, assess for acute coronary syndrome.-negative trop x 3/NL EF by echo/ No ischemia and NL by lexiscan. ? Vassospasm 2. Abnormal electrocardiogram, assess for acute coronary syndrome. 3. Hypertension, under reasonable control with some elevations recently. 4. Prior tobacco intake. 5. Increased TSH. 6. Dyslipidemia with low HDL. Recc: -Tele -continue BB -Contineu asa -Continue isordil as tolerated -STart ranexa and follow sx. -smoking cessation Problems: Consultation Date/Type/Reason Admit Date/Time Jul 14, 2017 at 22:05 Initial Consult Date 07/15/2017 Type of Consultation: cardiology Reason for Consultation Chest pain Referring Provider: APRYL ROGERS MD Exam/Review of Systems Vital Signs Vitals Vital Signs Date Time Temp Pulse Resp B/P Pulse Ox O2 Delivery O2 Flow Rate FiO2 07/18/17 12:14 61 07/18/17 11:43 98.0 18 109/75 97 07/16/17 20:00 Nasal Cannula 2.0 Intake and Output 07/17/17 07/17/17 07/18/17 15:00 23:00 07:00 Intake Total 650 ml 300 ml Balance 650 ml 300 ml Exam Review of Systems: CONSTITUTIONAL: No fevers, chills. PULMONARY: No sob CARDIOVASCULAR: No chest pain/palpitations GASTROINTESTINAL: No nausea/vomiting. GENITOURINARY: No hematuria/dysuria. MUSCULOSKELETAL: No myagias/arthalgias. PSYCHIATRIC: The patient denies depression. NEUROLOGIC: No weakness Constitutional: alert Psych: no complaints Head: normocephalic ENMT: mucosa pink and moist Neck: jvd (9 cm water), supple Respiratory: diminished breath sounds Cardiovascular: regular rate and rhythm Gastrointestinal: non-tender, soft Musculoskeletal: muscle tone (normal) Extremities: edema (none) Neurological: other (No focal deficits) Results Result Diagram: 07/17/17 0550 07/17/17 0550 Medications Medications Current Medications Aspirin (Halfprin) 81 mg DAILY PO Last administered on 07/18/17t 08:57; Admin Dose 81 MG; Start 07/15/17 at 09:00 Metoprolol Tartrate (Lopressor) 25 mg BID PO Last administered on 07/18/17 09 :00; Admin Dose 25 MG; Start 07/15/17 at 09:00 Nitroglycerin (Nitroglycerin (Sl Tab) 0.4 Mg) 1 tab Q5M PRN SL ANGINA Last administered on 07/17/17 14:10; Admin Dose 1 TAB; Start 07/14/17 at 23:30 Enoxaparin Sodium (Lovenox) 40 mg DAILY SC Last administered on 07/18/17 09: 02; Admin Dose 40 MG; Start 07/15/17 at 09:00 Nicotine (Nicoderm 21 Mg/ 24hr) 1 patch DAILY TRANSDERM Last administered on 09:02; Admin Dose 1 PATCH; Start 07/15/17 at 09:00 Isosorbide Dinitrate (Isordil) 20 mg TID PO Last administered on 07/18/17 12: 24; Admin Dose 20 MG; Start 07/15/17 at 21:00 Pantoprazole (Protonix Tab) 40 mg DAILY@06 PO Last administered on 07/18/17 05:37; Admin Dose 40 MG; Start 07/17/17 at 06:00 Carisoprodol (Soma) 350 mg TID PO Last administered on 07/18/17 12:24; Admin Dose 350 MG; Start 07/17/17 at 18:00 Acetaminophen (Tylenol Tab) 650 mg Q4H PRN PO PAIN AND OR ELEVATED TEMP Last administered on 07/18/17 05:37; Admin Dose 650 MG; Start 07/17/17 at 14:30 JORGE TONY Jul 18, 2017 13:08
--- NOTE | 2017-07-18 14:26 | PN ---
Date/Time of Note Date/Time of Note DATE: 07/18/17 TIME: 14:19 Assessment/Plan VTE Prophylaxis VTE Prophylaxis Intervention: LMWH Lines/Catheters IV [facility] Saline Lock Urinary Cath still in place: No Assessment/Plan Assessment/Plan 1. Chest pain, ACS ruled out - Patient complete cardiac workup is negative including stress test, EKG, and troponins - Cardiology on board and recommendations appreciated. Started patient on Ranexa and will continue monitoring symptoms - will explore if GI etiology but denies any GERD symptoms. on PPI - pain control with Tylenol 2. Tobacco dependence - Nicotine patch and counseled about cessation of chewing tobacco 3. Bradycardia, asymptomatic 4. Subclinical hypothyroidism - will try small dose of Levothyroxine in the am 5. Disposition - Starting on new medication. if chest pain symptoms resolve will discharge in next 24-48 hours Subjective 24 Hr Interval Summary Free Text/Dictation Patient states hes still experiencing chest discomfort with shortness of breath. Denies any anxiety, stress, heart burn, or abdominal issues. Chest pain workup has been negative. No acute overnight events. Exam/Review of Systems Vital Signs Vitals Vital Signs Date Time Temp Pulse Resp B/P Pulse Ox O2 Delivery O2 Flow Rate FiO2 07/18/17 12:14 61 07/18/17 11:43 98.0 18 109/75 97 07/16/17 20:00 Nasal Cannula 2.0 Intake and Output 07/17/17 07/17/17 07/18/17 15:00 23:00 07:00 Intake Total 650 ml 300 ml Balance 650 ml 300 ml Exam General: Patient is laying in bed and answers questions appropriately Head: Normocephalic atraumatic Eyes: EOMI, pupils reactive to light Neck: Supple, nontender, midline Respiratory: Clear to auscultation bilaterally Cardiovascular: regular rate, no obvious murmurs Gastrointestinal: non-tender to palpation, bowel sounds heard. Neurological: Moves all extremities spontaneously Skin: No new skin lesions Results Result Diagram: 07/17/17 0550 07/17/17 0550 Medications Medications Current Medications Aspirin (Halfprin) 81 mg DAILY PO Last administered on 07/18/17 08:57; Admin Dose 81 MG; Start 07/15/17 at 09:00 Metoprolol Tartrate (Lopressor) 25 mg BID PO Last administered on 07/18/17 09 :00; Admin Dose 25 MG; Start 07/15/17 at 09:00 Nitroglycerin (Nitroglycerin (Sl Tab) 0.4 Mg) 1 tab Q5M PRN SL ANGINA Last administered on 07/17/17 14:10; Admin Dose 1 TAB; Start 07/14/17 at 23:30 Enoxaparin Sodium (Lovenox) 40 mg DAILY SC Last administered on 07/18/17 09: 02; Admin Dose 40 MG; Start 07/15/17 at 09:00 Nicotine (Nicoderm 21 Mg/ 24hr) 1 patch DAILY TRANSDERM Last administered on 09:02; Admin Dose 1 PATCH; Start 07/15/17 at 09:00 Isosorbide Dinitrate (Isordil) 20 mg TID PO Last administered on 07/18/17 12: 24; Admin Dose 20 MG; Start 07/15/17 at 21:00 Pantoprazole (Protonix Tab) 40 mg DAILY@06 PO Last administered on 07/18/17 05:37; Admin Dose 40 MG; Start 07/17/17 at 06:00 Carisoprodol (Soma) 350 mg TID PO Last administered on 07/18/17 12:24; Admin Dose 350 MG; Start 07/17/17 at 18:00 Acetaminophen (Tylenol Tab) 650 mg Q4H PRN PO PAIN AND OR ELEVATED TEMP Last administered on 07/18/17 05:37; Admin Dose 650 MG; Start 07/17/17 at 14:30 Ranolazine (Ranexa) 500 mg Q12 PO ; Start 07/18/17 at 21:00 APRYL ROGERS MD Jul 18, 2017 14:26
--- NOTE | 2017-07-18 15:01 | RADRPT ---
Vent Rate: 85 bpm RR Interval: 0 msec [place] Interval: 148 msec QRS Duration: 84 msec QT Interval: 364 msec QTC Interval: 433 msec P-R-T [place]: 66 - -72 - 62 degrees Normal sinus rhythm Left axis deviation Abnormal ECG Electronically Signed By: Bernard Abbott [id number]
--- NOTE | 2017-07-18 18:14 | RADRPT ---
Echocardiogram Report Patient Name: RUTHIE CHAVIRA Gender: Male Date: 1955 Study Date: 16-Jul-2017 [employer]: ROSY Location: Ref. Physician: Quality: Adequate Procedures: Transthoracic echocardiogram with complete 2D, M-Mode, and doppler examination. Indications: Chest Pain. 2D/M Mode Doppler Measurement Value Normal Ranges Measurement Value Normal Ranges AoR Diam MM 3.6 cm AV Peak Rafita 1.1 m/sec ACS MM 2.5 cm AV Peak PG 4.4 mmHg LVIDd 2D 5.2 3.5 - 5.6 cm LVOT Peak Rafita 0.9 m/sec LVIDs 2D 2.9 2.1 - 4.1 cm LVOT Peak PG 3.1 mmHg LVPWd 2D 1.1 0.6 - 1.1 cm MV E Peak Rafita 0.5 m/sec IVSd 2D 1.0 0.6 - 1.1 cm MV A Peak Rafita 0.5 m/sec EDV 2D 127.5 cm3 MV E/A 0.9 ESV 2D 25.1 cm3 MV Decel Time 285 msec LA Dimen 2D 3.9 2.3 - 4.0 cm MV Decel [place] 2 MV E/A 0.9 PV Peak Rafita 0.9 m/sec PV Peak PG 3.0 mmHg Findings Left Ventricle: Normal left ventricular systolic function. Normal left ventricular cavity size. Normal left ventricular wall thickness. Ejection fraction is visually estimated at 5560 %. Tissue Doppler/Mitral Doppler indices are consistent with impaired relaxation (Stage I diastolic dysfunction). E/E`=8. These segments of the LV are hypokinetic apical lateral segment. Right Ventricle: Normal right ventricular size. Normal right ventricular systolic function. Left Atrium: The left atrium is normal in size. Right Atrium: The right atrium is normal in size. Atrial Septum: Normal atrial septum. Mitral Valve: Normal appearance and function of the mitral valve with trace physiologic regurgitation. Aortic Valve: Normal appearance of the aortic valve. No significant aortic stenosis or insufficiency. Tricuspid Valve: Normal appearance and function of the tricuspid valve with trace physiologic regurgitation. Normal right ventricular systolic pressure. Pulmonic Valve: Normal pulmonic valve appearance. No evidence of pulmonic regurgitation. Pericardium: Normal pericardium with no significant pericardial effusion. No pleural effusion noted. Aorta: Normal aortic root. IVC: Normal size and normal respiratory collapse consistent with normal right atrial pressure. Pulmonary Artery: Normal pulmonary artery size. Conclusions 1.Normal left ventricular systolic function. Normal left ventricular cavity size. Normal left ventricular wall thickness. Ejection fraction is visually estimated at 55-60 %. Tissue Doppler/Mitral Doppler indices are consistent with impaired relaxation (Stage I diastolic dysfunction). E/E`=8. These segments of the LV are hypokinetic apical lateral segment. 2.Normal appearance and function of the mitral valve with trace physiologic regurgitation. 3.Normal appearance and function of the tricuspid valve with trace physiologic regurgitation. Normal right ventricular systolic pressure. Electronically Signed By: Rubin Ortega 18-Jul-2017 18:13:35 -0700 Patient Name: RUTHIE CHAVIRA Study Date: 16-Jul-2017 [id number]
[2017-07-18] MEDS: RANOLAZINE (SR) 500 MG TAB PO SCH (21:20)
[2017-07-19] VITALS (12 sets, daily range): BP systolic 105–139; BP diastolic 66–83; PULSE 60–85; RESP 18–20
[2017-07-19] MEDS: LEVOTHYROXINE 25 MCG TAB PO SCH (05:24)
[2017-07-19] MEDS: PANTOPRAZOLE (EC) 40 MG TAB PO SCH (05:24)
[2017-07-19] MEDS: ACETAMINOPHEN 325 MG TAB PO PRN ×2 (05:29→21:14)
[2017-07-19 08:23] LABS: BASOPHILS % 0.7 % (0.0-2.0); EOSINOPHILS # 0.1 10^3/ul (0.0-0.5); EOSINOPHILS % 1.3 % (0.0-7.0); HEMATOCRIT 45.1 % (42.0-52.0); HEMOGLOBIN 14.8 g/dl (14.0-18.0); LYMPHOCYTES # 1.7 10^3/ul (0.8-2.9); LYMPHOCYTES % 31.2 % (15.0-51.0); MEAN CORPUSCULAR HEMOGLOBIN 29.9 pg (29.0-33.0); MEAN CORPUSCULAR HGB CONC 32.8 g/dl (32.0-37.0); MEAN CORPUSCULAR VOLUME 91.1 fl (82.0-101.0); MEAN PLATELET VOLUME 10.5 fl (7.4-10.4); MONOCYTE # 0.5 10^3/ul (0.3-0.9); NEUTROPHIL # 3.1 10^3/ul (1.6-7.5); NEUTROPHILS % 57.2 % (39.0-77.0); PLATELET COUNT 231 10^3/UL (140-415); RED BLOOD COUNT 4.95 10^6/ul (4.70-6.10); WHITE BLOOD COUNT 5.4 10^3/ul (4.8-10.8)
[2017-07-19 08:46] LABS: ALBUMIN 4.4 g/dl (3.3-4.9); CALCIUM 10.2 mg/dl (8.4-10.2); CREATININE 1.04 mg/dl (0.61-1.24); MAGNESIUM 1.9 mg/dl (1.7-2.5); PHOSPHORUS 3.3 mg/dl (2.5-4.9)
[2017-07-19] MEDS: ENOXAPARIN 40 MG/0.4 ML SYG SC SCH (09:11)
[2017-07-19] MEDS: RANOLAZINE (SR) 500 MG TAB PO SCH ×2 (09:18→21:13)
[2017-07-19] MEDS: NICOTINE (21 MG/24 HR) PATCH TRANSDERM SCH (09:18)
[2017-07-19] MEDS: CARISOPRODOL 350 MG TAB PO SCH ×3 (09:20→21:13)
[2017-07-19] MEDS: ASPIRIN (EC) 81 MG TAB PO SCH (09:22)
[2017-07-19] MEDS: ISOSORBIDE DINITRATE 20 MG TAB PO SCH ×3 (09:22→21:13)
[2017-07-19] MEDS: METOPROLOL 25 MG TAB PO SCH ×2 (09:22→21:13)
--- NOTE | 2017-07-19 10:27 | CONS ---
Date/Time of Note Date/Time of Note DATE: 07/19/17 TIME: 10:26 Assessment/Plan Assessment/Plan Additional Assessment/Plan 1. Chest pain, assess for acute coronary syndrome.-negative trop x 3/NL EF by echo/ No ischemia and NL by lexiscan. ? Vassospasm - r/o [place] - doubt ischemia now 2. Abnormal electrocardiogram, assess for acute coronary syndrome. 3. Hypertension, under reasonable control with some elevations recently. BETTER now 4. Prior tobacco intake. 5. Increased TSH. 6. Dyslipidemia with low HDL. Consultation Date/Type/Reason Admit Date/Time Jul 14, 2017 at 22:05 Type of Consultation: cardiology Referring Provider: APRYL ROGERS MD 24 HR Interval Summary Free Text/Dictation Negative stress test - dispo planned ROS: No fever, no chills, no nausea, no vomiting, no diarrhea/constipation No recent weight changes No chest pain, no PND, no orthopnea No dizziness, blurred vision No thirst, no heat or cold intolerance Exam/Review of Systems Vital Signs Vitals Vital Signs Date Time Temp Pulse Resp B/P Pulse Ox O2 Delivery O2 Flow Rate FiO2 07/19/17 08:00 60 07/19/17 07:52 97.3 18 139/78 97 07/16/17 20:00 Nasal Cannula 2.0 Intake and Output 07/18/17 07/18/17 07/19/17 15:00 23:00 07:00 Intake Total 800 ml 480 ml Balance 800 ml 480 ml Exam General: WN/WD/NAD, AOx 3 HEENT: Unicetric/atraumatic/EOMI (follow commands) NECK: JVD elevated, no thyromegaly Lymph: no lymphadenopathy HEART: regular with no S3, II/ systolic murmur at apex LUNGS: Coarse sounds ABD: soft, NT, ND, +BS : Intact Neuro: non focal SKIN: chronic changes EXT: trace edema Results Result Diagram: 07/19/1718 07/19/1718 Results 24 hrs Laboratory Tests Test 07/19/17 07:18 White Blood Count 5.4 Red Blood Count 4.95 Hemoglobin 14.8 Hematocrit 45.1 Mean Corpuscular Volume 91.1 Mean Corpuscular Hemoglobin 29.9 Mean Corpuscular Hemoglobin Concent 32.8 Red Cell Distribution Width 13.0 Platelet Count 231 Mean Platelet Volume 10.5 H Neutrophils % 57.2 Lymphocytes % 31.2 Monocytes % 9.0 Eosinophils % 1.3 Basophils % 0.7 Nucleated Red Blood Cells % 0.0 Neutrophils # 3.1 Lymphocytes # 1.7 Monocytes # 0.5 Eosinophils # 0.1 Basophils # 0.0 Nucleated Red Blood Cells # 0.0 Sodium Level 144 Potassium Level 4.0 Chloride Level 107 Carbon Dioxide Level 27 Anion Gap 14 Blood Urea Nitrogen 16 Creatinine 1.04 Glucose Level 79 Calcium Level 10.2 Phosphorus Level 3.3 Magnesium Level 1.9 Albumin 4.4 Medications Medications Current Medications Aspirin (Halfprin) 81 mg DAILY PO Last administered on 07/19/17 09:22; Admin Dose 81 MG; Start 07/15/17 at 09:00 Metoprolol Tartrate (Lopressor) 25 mg BID PO Last administered on 07/19/17 09 :22; Admin Dose 25 MG; Start 07/15/17 at 09:00 Nitroglycerin (Nitroglycerin (Sl Tab) 0.4 Mg) 1 tab Q5M PRN SL ANGINA Last administered on 07/17/17 14:10; Admin Dose 1 TAB; Start 07/14/17 at 23:30 Enoxaparin Sodium (Lovenox) 40 mg DAILY SC Last administered on 07/19/17 09: 11; Admin Dose 40 MG; Start 07/15/17 at 09:00 Nicotine (Nicoderm 21 Mg/ 24hr) 1 patch DAILY TRANSDERM Last administered on 09:18; Admin Dose 1 PATCH; Start 07/15/17 at 09:00 Isosorbide Dinitrate (Isordil) 20 mg TID PO Last administered on 07/19/17 09: 22; Admin Dose 20 MG; Start 07/15/17 at 21:00 Pantoprazole (Protonix Tab) 40 mg DAILY@06 PO Last administered on 07/19/17 05:24; Admin Dose 40 MG; Start 07/17/17 at 06:00 Carisoprodol (Soma) 350 mg TID PO Last administered on 07/19/17 09:20; Admin Dose 350 MG; Start 07/17/17 at 18:00 Acetaminophen (Tylenol Tab) 650 mg Q4H PRN PO PAIN AND OR ELEVATED TEMP Last administered on 07/19/17 05:29; Admin Dose 650 MG; Start 07/17/17 at 14:30 Ranolazine (Ranexa) 500 mg Q12 PO Last administered on 07/19/17 09:18; Admin Dose 500 MG; Start 07/18/17 at 21:00 Levothyroxine Sodium (Synthroid) 12.5 mcg DAILY@06 PO Last administered on 05:24; Admin Dose 12.5 MCG; Start 07/19/17 at 06:00 RUTHIE GREEN MD Jul 19, 2017 10:27
--- NOTE | 2017-07-19 10:46 | PN ---
Date/Time of Note Date/Time of Note DATE: 07/19/17 TIME: 10:46 Assessment/Plan VTE Prophylaxis VTE Prophylaxis Intervention: LMWH Lines/Catheters IV [facility]from [facility] Saline Lock Urinary Cath still in place: No Assessment/Plan Assessment/Plan 1. Chest pain, ACS ruled out - Patient complete cardiac workup is negative including stress test, EKG, and troponins - Cardiology on board and recommendations appreciated. Started patient on Ranexa with no improvement in symptoms - pain control with Tylenol 2. Shortness of breath - Does admit to SOB with near syncopal episodes. Does not seem to have risk factors for PE but will order CTA for further evaluation. - SOB can be residual of 53 years of smoking history as well. started on neb treatments 2. Tobacco dependence - Nicotine patch and counseled about cessation of chewing tobacco 3. Bradycardia- improving 4. Subclinical hypothyroidism - started on Levothyroxine 5. Disposition - Awaiting results of CTA chest. Discussed with patient if negative will d/c in am. Complete workup was performed to evaluate chest pain Subjective 24 Hr Interval Summary Free Text/Dictation Patient states still experiencing chest pain with associated shortness of breath. Denies any reflux symptoms or anxiety. No acute overnight events. Denies any sputum production when asked but admitted to nurse experiencing cough with sputum. Exam/Review of Systems Vital Signs Vitals Vital Signs Date Time Temp Pulse Resp B/P Pulse Ox O2 Delivery O2 Flow Rate FiO2 07/19/17 08:00 60 07/19/17 07:52 97.3 18 139/78 97 07/16/17 20:00 Nasal Cannula 2.0 Intake and Output 07/18/17 07/18/17 07/19/17 15:00 23:00 07:00 Intake Total 800 ml 480 ml Balance 800 ml 480 ml Exam General: Patient is laying in bed and answers questions appropriately Head: Normocephalic atraumatic Eyes: EOMI, pupils reactive to light Neck: Supple, nontender, midline Respiratory: Clear to auscultation bilaterally Cardiovascular: regular rate, no obvious murmurs, chest pain not reproducible Gastrointestinal: non-tender to palpation, bowel sounds heard. Neurological: Moves all extremities spontaneously Skin: No new skin lesions Results Result Diagram: 07/19/1718 07/19/1718 Results 24 hrs Laboratory Tests Test 07/19/17 07:18 White Blood Count 5.4 Red Blood Count 4.95 Hemoglobin 14.8 Hematocrit 45.1 Mean Corpuscular Volume 91.1 Mean Corpuscular Hemoglobin 29.9 Mean Corpuscular Hemoglobin Concent 32.8 Red Cell Distribution Width 13.0 Platelet Count 231 Mean Platelet Volume 10.5 H Neutrophils % 57.2 Lymphocytes % 31.2 Monocytes % 9.0 Eosinophils % 1.3 Basophils % 0.7 Nucleated Red Blood Cells % 0.0 Neutrophils # 3.1 Lymphocytes # 1.7 Monocytes # 0.5 Eosinophils # 0.1 Basophils # 0.0 Nucleated Red Blood Cells # 0.0 Sodium Level 144 Potassium Level 4.0 Chloride Level 107 Carbon Dioxide Level 27 Anion Gap 14 Blood Urea Nitrogen 16 Creatinine 1.04 Glucose Level 79 Calcium Level 10.2 Phosphorus Level 3.3 Magnesium Level 1.9 Albumin 4.4 Medications Medications Current Medications Aspirin (Halfprin) 81 mg DAILY PO Last administered on 07/19/17 09:22; Admin Dose 81 MG; Start 07/15/17 at 09:00 Metoprolol Tartrate (Lopressor) 25 mg BID PO Last administered on 07/19/17 09 :22; Admin Dose 25 MG; Start 07/15/17 at 09:00 Nitroglycerin (Nitroglycerin (Sl Tab) 0.4 Mg) 1 tab Q5M PRN SL ANGINA Last administered on 07/17/17 14:10; Admin Dose 1 TAB; Start 07/14/17 at 23:30 Enoxaparin Sodium (Lovenox) 40 mg DAILY SC Last administered on 07/19/17 09: 11; Admin Dose 40 MG; Start 07/15/17 at 09:00 Nicotine (Nicoderm 21 Mg/ 24hr) 1 patch DAILY TRANSDERM Last administered on 09:18; Admin Dose 1 PATCH; Start 07/15/17 at 09:00 Isosorbide Dinitrate (Isordil) 20 mg TID PO Last administered on 07/19/17 09: 22; Admin Dose 20 MG; Start 07/15/17 at 21:00 Pantoprazole (Protonix Tab) 40 mg DAILY@06 PO Last administered on 07/19/17 05:24; Admin Dose 40 MG; Start 07/17/17 at 06:00 Carisoprodol (Soma) 350 mg TID PO Last administered on 07/19/17 09:20; Admin Dose 350 MG; Start 07/17/17 at 18:00 Acetaminophen (Tylenol Tab) 650 mg Q4H PRN PO PAIN AND OR ELEVATED TEMP Last administered on 07/19/17 05:29; Admin Dose 650 MG; Start 07/17/17 at 14:30 Ranolazine (Ranexa) 500 mg Q12 PO Last administered on 07/19/17 09:18; Admin Dose 500 MG; Start 07/18/17 at 21:00 Levothyroxine Sodium (Synthroid) 12.5 mcg DAILY@06 PO Last administered on 05:24; Admin Dose 12.5 MCG; Start 07/19/17 at 06:00 APRYL ROGERS MD Jul 19, 2017 10:46
[2017-07-19] MEDS: ALBUTEROL 0.083% (NEB) 2.5 MG/3 ML AMP HHN SCH ×2 (14:13→19:47)
[2017-07-19] MEDS ORDERED: IOHEXOL 100 ML ONE (16:12)
[2017-07-19] MEDS ORDERED: IOHEXOL 350MG/ML 50 ML BTL ONE (16:12)
[2017-07-19] MEDS ORDERED: SOD CHLORIDE 0.9% 100 ML ONE (16:12)
--- NOTE | 2017-07-19 16:40 | RADRPT ---
PROCEDURE: CTA Chest and pulmonary angiogram. CLINICAL INDICATION: Chest pain and shortness of breath. TECHNIQUE: CT scan of the chest and CT pulmonary angiogram was performed on a multidetector high-r [employer] CT scanner. High-resolution thin slice coronal and sagittal imaging was obtained from the axial source images. 3-D volumetric rendered post processing was performed as well. The patient w as examined following the uncomplicated intravenous administration of 100 cc of Omnipaque-300. The i mages were reviewed on a PACS workstation. One or more of the following dose reduction techniques we re used: Automated exposure control, adjustment of the mA and/or kV according to patient size, use of iterative reconstruction technique. The total exam CTDI equals 56.3, 15.74 and the total exam DL P equals 754.25 mGy-cm. COMPARISON: FINDINGS: CT chest: Paraseptal emphysematous changes are present in the bilateral upper lobes. There is mild central bro nchiectasis. Bilateral dependent atelectatic changes are present. Small pulmonary blebs are present in the lower lobes. No focal opacification, effusion, pneumothorax, edema, or nodules are seen. The central tracheobronchial tree is clear. The mediastinum is unremarkable without evidence for mass or lymphadenopathy. The vascular structur es of the mediastinum are normal in course and caliber. The heart size is normal without pericardia l thickening or effusion. The axillary, subpectoral, and supraclavicular regions are unremarkable. There is a peripherally calcified 5.4 cm exophytic cyst within the superior pole of the left kidney with mildly thickened wall. Imaging obtained through the upper abdomen is otherwise unremarkable. T he surrounding chest wall is unremarkable. The osseous structures are remarkable for degenerative s pondylosis of the spine. Vertebral body hemangiomas are noted in the thoracic spine. CT pulmonary angiogram: No thrombus, clot, filling defect, or pulmonary web is identified. The pulmonary arteries are arslan l in caliber and morphology. No filling defect is present to suggest pulmonary embolism. There is no evidence for pulmonary arterial hypertension. IMPRESSION: 1. No evidence for pulmonary embolism. 2. No evidence of acute cardiopulmonary process. 3. Paraseptal emphysematous changes seen, predominately in the upper lobes. Mild central bronchiect asis. 4. Peripherally calcified cyst in the superior pole of the left kidney with mild wall thickening, c onsistent with probable does not have passed to a cyst. This can be followed in 6-12 months with paulino gallardo protocol CT. RPTAT: JJ .Kirby Yang MD, MD Date Time Electronically viewed and signed by .Kirby Yang MD, on 07/19/2017 16:40 .A/
[2017-07-20] VITALS (10 sets, daily range): BP systolic 101–127; BP diastolic 60–77; PULSE 60–82; RESP 18–20
[2017-07-20] MEDS: PANTOPRAZOLE (EC) 40 MG TAB PO SCH (06:18)
[2017-07-20] MEDS: LEVOTHYROXINE 25 MCG TAB PO SCH (06:18)
[2017-07-20] MEDS: ACETAMINOPHEN 325 MG TAB PO PRN ×2 (06:23→16:40)
[2017-07-20] MEDS: ALBUTEROL 0.083% (NEB) 2.5 MG/3 ML AMP HHN SCH ×3 (07:55→19:39)
[2017-07-20 08:32] LABS: BASOPHIL # 0.1 10^3/ul (0.0-0.1); BASOPHILS % 0.9 % (0.0-2.0); EOSINOPHILS # 0.1 10^3/ul (0.0-0.5); EOSINOPHILS % 0.9 % (0.0-7.0); HEMATOCRIT 41.9 % (42.0-52.0); HEMOGLOBIN 13.6 g/dl (14.0-18.0); LYMPHOCYTES # 1.5 10^3/ul (0.8-2.9); LYMPHOCYTES % 27.8 % (15.0-51.0); MEAN CORPUSCULAR HEMOGLOBIN 28.9 pg (29.0-33.0); MEAN CORPUSCULAR HGB CONC 32.5 g/dl (32.0-37.0); MEAN CORPUSCULAR VOLUME 89.1 fl (82.0-101.0); MEAN PLATELET VOLUME 10.2 fl (7.4-10.4); MONOCYTE # 0.5 10^3/ul (0.3-0.9); MONOCYTES % 8.3 % (0.0-11.0); NEUTROPHIL # 3.3 10^3/ul (1.6-7.5); NEUTROPHILS % 61.7 % (39.0-77.0); PLATELET COUNT 224 10^3/UL (140-415); RED CELL DISTRIBUTION WIDTH 13.1 % (11.5-14.5); WHITE BLOOD COUNT 5.4 10^3/ul (4.8-10.8)
[2017-07-20 09:02] LABS: ALBUMIN 4.6 g/dl (3.3-4.9); CALCIUM 9.9 mg/dl (8.4-10.2); CREATININE 1.09 mg/dl (0.61-1.24); MAGNESIUM 1.9 mg/dl (1.7-2.5); PHOSPHORUS 3.3 mg/dl (2.5-4.9); POTASSIUM 4.1 mmol/L (3.5-5.1)
[2017-07-20] MEDS: NICOTINE (21 MG/24 HR) PATCH TRANSDERM SCH (09:39)
[2017-07-20] MEDS: ENOXAPARIN 40 MG/0.4 ML SYG SC SCH (09:40)
[2017-07-20] MEDS: CARISOPRODOL 350 MG TAB PO SCH (09:41)
[2017-07-20] MEDS: RANOLAZINE (SR) 500 MG TAB PO SCH ×2 (09:41→22:25)
[2017-07-20] MEDS: METOPROLOL 25 MG TAB PO SCH ×2 (09:42→22:24)
[2017-07-20] MEDS: ISOSORBIDE DINITRATE 20 MG TAB PO SCH ×3 (09:42→22:23)
[2017-07-20] MEDS: ASPIRIN (EC) 81 MG TAB PO SCH (09:42)
--- NOTE | 2017-07-20 10:48 | PN ---
Date/Time of Note Date/Time of Note DATE: 07/20/17 TIME: 10:48 Assessment/Plan VTE Prophylaxis VTE Prophylaxis Intervention: LMWH Lines/Catheters [facility] Saline Lock Urinary Cath still in place: No Assessment/Plan Assessment/Plan 1. Chest pain, ACS ruled out - Patient complete cardiac workup is negative including stress test, EKG, and troponins - Cardiology on board and recommendations appreciated. Started patient on Ranexa with no improvement in symptoms - pain control with Tylenol 2. Shortness of breath secondary to emphysema - CTA was negative for any acute abnormalities but did show emphysematous changes - patient has 53 yr smoking history and will need outpatient PFT 2. Tobacco dependence - Nicotine patch and counseled about cessation of chewing tobacco 3. Bradycardia- improving 4. Subclinical hypothyroidism - started on Levothyroxine 5. Disposition - if remains stable with improvement of chest pain, will d/c in am Subjective 24 Hr Interval Summary Free Text/Dictation Patient complaining of chest pain this am with radiation down left arm and associated SOB. Patient appears anxious as well and offered medication for relief. No acute overnight events. Exam/Review of Systems Vital Signs Vitals Vital Signs Date Time Temp Pulse Resp B/P Pulse Ox O2 Delivery O2 Flow Rate FiO2 07/20/17 08:00 82 07/20/17 07:55 18 97 21 07/20/17 07:42 98.4 127/77 07/16/17 20:00 Nasal Cannula 2.0 Intake and Output 07/19/17 07/19/17 07/20/17 15:00 23:00 07:00 Intake Total 900 ml Balance 900 ml Exam General: Patient is laying in bed and answers questions appropriately Head: Normocephalic atraumatic Eyes: EOMI, pupils reactive to light Neck: Supple, nontender, midline Respiratory: Clear to auscultation bilaterally Cardiovascular: regular rate, no obvious murmurs, chest pain not reproducible Gastrointestinal: non-tender to palpation, bowel sounds heard. Neurological: Moves all extremities spontaneously Skin: No new skin lesions Results Result Diagram: 07/20/17 0807/20/17 08 Results 24 hrs Laboratory Tests Test 07/20/17 08:01 White Blood Count 5.4 Red Blood Count 4.70 Hemoglobin 13.6 L Hematocrit 41.9 L Mean Corpuscular Volume 89.1 Mean Corpuscular Hemoglobin 28.9 L Mean Corpuscular Hemoglobin Concent 32.5 Red Cell Distribution Width 13.1 Platelet Count 224 Mean Platelet Volume 10.2 Neutrophils % 61.7 Lymphocytes % 27.8 Monocytes % 8.3 Eosinophils % 0.9 Basophils % 0.9 Nucleated Red Blood Cells % 0.0 Neutrophils # 3.3 Lymphocytes # 1.5 Monocytes # 0.5 Eosinophils # 0.1 Basophils # 0.1 Nucleated Red Blood Cells # 0.0 Sodium Level 143 Potassium Level 4.1 Chloride Level 110 Carbon Dioxide Level 21 Anion Gap 16 Blood Urea Nitrogen 18 Creatinine 1.09 Glucose Level 86 Calcium Level 9.9 Phosphorus Level 3.3 Magnesium Level 1.9 Albumin 4.6 Medications Medications Current Medications Aspirin (Halfprin) 81 mg DAILY PO Last administered on 07/20/17 09:42; Admin Dose 81 MG; Start 07/15/17 at 09:00 Metoprolol Tartrate (Lopressor) 25 mg BID PO Last administered on 07/20/17 09 :42; Admin Dose 25 MG; Start 07/15/17 at 09:00 Nitroglycerin (Nitroglycerin (Sl Tab) 0.4 Mg) 1 tab Q5M PRN SL ANGINA Last administered on 07/17/17 14:10; Admin Dose 1 TAB; Start 07/14/17 at 23:30 Enoxaparin Sodium (Lovenox) 40 mg DAILY SC Last administered on 07/20/17 09: 40; Admin Dose 40 MG; Start 07/15/17 at 09:00 Nicotine (Nicoderm 21 Mg/ 24hr) 1 patch DAILY TRANSDERM Last administered on 09:39; Admin Dose 1 PATCH; Start 07/15/17 at 09:00 Isosorbide Dinitrate (Isordil) 20 mg TID PO Last administered on 07/20/17 09: 42; Admin Dose 20 MG; Start 07/15/17 at 21:00 Pantoprazole (Protonix Tab) 40 mg DAILY@06 PO Last administered on 07/20/17 06:18; Admin Dose 40 MG; Start 07/17/17 at 06:00 Acetaminophen (Tylenol Tab) 650 mg Q4H PRN PO PAIN AND OR ELEVATED TEMP Last administered on 07/20/17 06:23; Admin Dose 650 MG; Start 10/15/17 at 14:30 Ranolazine (Ranexa) 500 mg Q12 PO Last administered on 07/20/17 09:41; Admin Dose 500 MG; Start 07/18/17 at 21:00 Levothyroxine Sodium (Synthroid) 12.5 mcg DAILY@06 PO Last administered on 06:18; Admin Dose 12.5 MCG; Start 07/19/17 at 06:00 Salmeterol Xinafoate/ Fluticasone (Advair 250/50 Diskus) 1 inh BID INH ; Start 07/20/17 at 11:00; Status UNV Lorazepam (Ativan) 0.5 mg Q6H PRN PO ANXIETY; Start 07/20/17 at 11:00; Status UNV Carisoprodol (Soma) 350 mg TID PRN PO muscle spasm; Start 07/20/17 at 11:00; Status UNV APRYL ROGERS MD Jul 20, 2017 10:48
[2017-07-20] MEDS ORDERED: LORAZEPAM 0.5 MG TAB PO PRN (11:00)
[2017-07-20] MEDS: SALMETEROL/FLUTICASONE 250/50 INHA INH SCH ×2 (13:35→22:23)
[2017-07-20] MEDS: CARISOPRODOL 350 MG TAB PO PRN ×2 (13:35→22:30)
[2017-07-20] MEDS: LORAZEPAM 1 MG TAB PO PRN ×2 (16:40→22:30)
--- NOTE | 2017-07-20 17:28 | CONS ---
Date/Time of Note Date/Time of Note DATE: 07/20/17 TIME: 17:26 Assessment/Plan Assessment/Plan Chief Complaint/Hosp Course IMPRESSION: 1. Chest pain, assess for acute coronary syndrome.-negative trop x 3/NL EF by echo/ No ischemia and NL by lexiscan. ? Vasospasm/GI 2. Abnormal electrocardiogram, assess for acute coronary syndrome. 3. Hypertension, under reasonable control with some elevations recently. 4. Prior tobacco intake. 5. Increased TSH. 6. Dyslipidemia with low HDL. Recc: -Tele -continue BB/isordil and will increase ranexa and f/u sx. -Will consider low dose CCB as tolerated for additional possible treatment of spasm -Contineu asa -smoking cessation -started on benzo's Problems: Consultation Date/Type/Reason Admit Date/Time Jul 14, 2017 at 22:05 Initial Consult Date 07/15/2017 Type of Consultation: cardiology Reason for Consultation chest pain Referring Provider: APRYL ROGERS MD Exam/Review of Systems Vital Signs Vitals Vital Signs Date Time Temp Pulse Resp B/P Pulse Ox O2 Delivery O2 Flow Rate FiO2 07/20/17 16:00 74 07/20/17 15:35 97.7 18 109/64 96 07/20/17 14:38 21 07/20/17 11:13 Nasal Cannula 2.0 Intake and Output 07/19/17 07/19/17 07/20/17 15:00 23:00 07:00 Intake Total 900 ml Balance 900 ml Exam Review of Systems: CONSTITUTIONAL: No fevers, chills. PULMONARY: No sob CARDIOVASCULAR: Positive chest pain GASTROINTESTINAL: No nausea/vomiting. GENITOURINARY: No hematuria/dysuria. MUSCULOSKELETAL: No myagias/arthalgias. PSYCHIATRIC: The patient denies depression. NEUROLOGIC: No weakness Constitutional: alert Psych: no complaints Head: normocephalic ENMT: mucosa pink and moist Neck: jvd (9 cm water), supple Respiratory: clear to auscultation Cardiovascular: regular rate and rhythm Gastrointestinal: non-tender, soft Musculoskeletal: muscle tone (normal) Extremities: edema (none) Neurological: other (No focal deficits) Results Result Diagram: 07/20/17 0801 07/20/17 0801 Results 24 hrs Laboratory Tests Test 07/20/17 08:01 White Blood Count 5.4 Red Blood Count 4.70 Hemoglobin 13.6 L Hematocrit 41.9 L Mean Corpuscular Volume 89.1 Mean Corpuscular Hemoglobin 28.9 L Mean Corpuscular Hemoglobin Concent 32.5 Red Cell Distribution Width 13.1 Platelet Count 224 Mean Platelet Volume 10.2 Neutrophils % 61.7 Lymphocytes % 27.8 Monocytes % 8.3 Eosinophils % 0.9 Basophils % 0.9 Nucleated Red Blood Cells % 0.0 Neutrophils # 3.3 Lymphocytes # 1.5 Monocytes # 0.5 Eosinophils # 0.1 Basophils # 0.1 Nucleated Red Blood Cells # 0.0 Sodium Level 143 Potassium Level 4.1 Chloride Level 110 Carbon Dioxide Level 21 Anion Gap 16 Blood Urea Nitrogen 18 Creatinine 1.09 Glucose Level 86 Calcium Level 9.9 Phosphorus Level 3.3 Magnesium Level 1.9 Albumin 4.6 Medications Medications Current Medications Aspirin (Halfprin) 81 mg DAILY PO Last administered on 07/20/17 09:42; Admin Dose 81 MG; Start 07/15/17 at 09:00 Metoprolol Tartrate (Lopressor) 25 mg BID PO Last administered on 07/20/17 09 :42; Admin Dose 25 MG; Start 07/15/17 at 09:00 Nitroglycerin (Nitroglycerin (Sl Tab) 0.4 Mg) 1 tab Q5M PRN SL ANGINA Last administered on 07/17/17 14:10; Admin Dose 1 TAB; Start 07/14/17 at 23:30 Enoxaparin Sodium (Lovenox) 40 mg DAILY SC Last administered on 07/20/17 09: 40; Admin Dose 40 MG; Start 07/15/17 at 09:00 Nicotine (Nicoderm 21 Mg/ 24hr) 1 patch DAILY TRANSDERM Last administered on 09:39; Admin Dose 1 PATCH; Start 07/15/17 at 09:00 Isosorbide Dinitrate (Isordil) 20 mg TID PO Last administered on 07/20/17 13: 35; Admin Dose 20 MG; Start 07/15/17 at 21:00 Pantoprazole (Protonix Tab) 40 mg DAILY@06 PO Last administered on 07/20/17 06:18; Admin Dose 40 MG; Start 07/17/17 at 06:00 Acetaminophen (Tylenol Tab) 650 mg Q4H PRN PO PAIN AND OR ELEVATED TEMP Last administered on 07/20/17 16:40; Admin Dose 650 MG; Start 07/17/17 at 14:30 Ranolazine (Ranexa) 500 mg Q12 PO Last administered on 07/20/17 09:41; Admin Dose 500 MG; Start 07/18/17 at 21:00 Levothyroxine Sodium (Synthroid) 12.5 mcg DAILY@06 PO Last administered on 06:18; Admin Dose 12.5 MCG; Start 07/19/17 at 06:00 Salmeterol Xinafoate/ Fluticasone (Advair 250/50 Diskus) 1 inh BID INH Last administered on 07/20/17 13:35; Admin Dose 1 INH; Start 07/20/17 at 11:30 Carisoprodol (Soma) 350 mg TID PRN PO muscle spasm Last administered on 13:35; Admin Dose 350 MG; Start 07/20/17 at 11:00 Lorazepam (Ativan) 1 mg Q6H PRN PO ANXIETY Last administered on 07/20/17 16: 40; Admin Dose 1 MG; Start 07/20/17 at 17:00 JORGE TONY Jul 20, 2017 17:28
[2017-07-21] VITALS (7 sets, daily range): BP systolic 112–127; BP diastolic 60–78; PULSE 63–76; RESP 18
[2017-07-21] MEDS: PANTOPRAZOLE (EC) 40 MG TAB PO SCH (07:23)
[2017-07-21] MEDS: LEVOTHYROXINE 25 MCG TAB PO SCH (07:23)
[2017-07-21] MEDS: ALBUTEROL 0.083% (NEB) 2.5 MG/3 ML AMP HHN SCH ×2 (07:36→14:35)
[2017-07-21] MEDS: ENOXAPARIN 40 MG/0.4 ML SYG SC SCH (09:00)
[2017-07-21 09:05] LABS: BASOPHILS % 0.9 % (0.0-2.0); EOSINOPHILS # 0.1 10^3/ul (0.0-0.5); EOSINOPHILS % 1.1 % (0.0-7.0); HEMATOCRIT 41.8 % (42.0-52.0); HEMOGLOBIN 13.1 g/dl (14.0-18.0); LYMPHOCYTES # 1.4 10^3/ul (0.8-2.9); LYMPHOCYTES % 31.4 % (15.0-51.0); MEAN CORPUSCULAR HEMOGLOBIN 28.5 pg (29.0-33.0); MEAN CORPUSCULAR HGB CONC 31.3 g/dl (32.0-37.0); MEAN CORPUSCULAR VOLUME 91.1 fl (82.0-101.0); MEAN PLATELET VOLUME 10.7 fl (7.4-10.4); MONOCYTE # 0.2 10^3/ul (0.3-0.9); MONOCYTES % 4.8 % (0.0-11.0); NEUTROPHIL # 2.7 10^3/ul (1.6-7.5); NEUTROPHILS % 61.1 % (39.0-77.0); PLATELET COUNT 219 10^3/UL (140-415); RED BLOOD COUNT 4.59 10^6/ul (4.70-6.10); RED CELL DISTRIBUTION WIDTH 13.3 % (11.5-14.5); WHITE BLOOD COUNT 4.4 10^3/ul (4.8-10.8)
[2017-07-21 09:16] LABS: ALBUMIN 4.6 g/dl (3.3-4.9); CALCIUM 9.6 mg/dl (8.4-10.2); MAGNESIUM 1.8 mg/dl (1.7-2.5); PHOSPHORUS 3.2 mg/dl (2.5-4.9)
[2017-07-21] MEDS: SALMETEROL/FLUTICASONE 250/50 INHA INH SCH (09:22)
[2017-07-21] MEDS: RANOLAZINE (SR) 500 MG TAB PO SCH (09:23)
[2017-07-21] MEDS: ISOSORBIDE DINITRATE 20 MG TAB PO SCH ×2 (09:23→16:11)
[2017-07-21] MEDS: METOPROLOL 25 MG TAB PO SCH (09:23)
[2017-07-21] MEDS: ASPIRIN (EC) 81 MG TAB PO SCH (09:23)
[2017-07-21] MEDS: LORAZEPAM 1 MG TAB PO PRN ×2 (09:23→16:04)
[2017-07-21] MEDS: CARISOPRODOL 350 MG TAB PO PRN ×2 (09:23→16:04)
[2017-07-21] MEDS: NICOTINE (21 MG/24 HR) PATCH TRANSDERM SCH (09:24)
--- NOTE | 2017-07-21 10:37 | PN ---
Date/Time of Note Date/Time of Note DATE: 07/21/17 TIME: 10:30 Assessment/Plan VTE Prophylaxis VTE Prophylaxis Intervention: LMWH Lines/Catheters IV Catheter Type (from Nrsg): Saline Lock Assessment/Plan Assessment/Plan 1. Chest pain, ACS ruled out - Appears to be socially induced in that when patient gets frustrated, chest pain manifest. Relief with Ativan PRN - Patient complete cardiac workup is negative including stress test, EKG, and troponins - Cardiology on board and recommendations appreciated. Ranexa dose increased and appears to be helping - pain control with Tylenol 2. Shortness of breath secondary to emphysema - CTA was negative for any acute abnormalities but did show emphysematous changes - patient has 53 yr smoking history and will need outpatient PFT - Started on Advair and will give script for rescue inhaler as well prior to d/c 2. Tobacco dependence - Nicotine patch and counseled about cessation of chewing tobacco 3. Bradycardia- improving 4. Subclinical hypothyroidism - started on Levothyroxine 5. Disposition -Medically stable for discharge home Subjective 24 Hr Interval Summary Free Text/Dictation Patient states he slept well last night after taking medications. Patient states he started experiencing chest pain this morning but also described being in a situation where he was frustrated. Explained that his frustration/anxiety may be manifesting without him consciously realizing it. Patient does admit that his condition has been improving however. Exam/Review of Systems Vital Signs Vitals Vital Signs Date Time Temp Pulse Resp B/P Pulse Ox O2 Delivery O2 Flow Rate FiO2 07/21/17 08:00 75 07/21/17 07:42 98.4 18 127/78 97 07/21/17 07:36 21 07/20/17 11:13 Nasal Cannula 2.0 Intake and Output 07/20/17 07/20/17 07/21/17 15:00 23:00 07:00 Intake Total 850 ml Balance 850 ml Exam General: Patient is laying in bed and answers questions appropriately Head: Normocephalic atraumatic Eyes: EOMI, pupils reactive to light Neck: Supple, nontender, midline Respiratory: Clear to auscultation bilaterally Cardiovascular: regular rate, no obvious murmurs, chest pain not reproducible Gastrointestinal: non-tender to palpation, bowel sounds heard. Neurological: Moves all extremities spontaneously Skin: No new skin lesions Results Result Diagram: 07/21/17 0738 07/21/17 0738 Results 24 hrs Laboratory Tests Test 07/21/17 07:38 White Blood Count 4.4 L Red Blood Count 4.59 L Hemoglobin 13.1 L Hematocrit 41.8 L Mean Corpuscular Volume 91.1 Mean Corpuscular Hemoglobin 28.5 L Mean Corpuscular Hemoglobin Concent 31.3 L Red Cell Distribution Width 13.3 Platelet Count 219 Mean Platelet Volume 10.7 H Neutrophils % 61.1 Lymphocytes % 31.4 Monocytes % 4.8 Eosinophils % 1.1 Basophils % 0.9 Nucleated Red Blood Cells % 0.0 Neutrophils # 2.7 Lymphocytes # 1.4 Monocytes # 0.2 L Eosinophils # 0.1 Basophils # 0.0 Nucleated Red Blood Cells # 0.0 Sodium Level 146 H Potassium Level 4.0 Chloride Level 109 Carbon Dioxide Level 22 Anion Gap 19 H Blood Urea Nitrogen 14 Creatinine 1.00 Glucose Level 135 # Calcium Level 9.6 Phosphorus Level 3.2 Magnesium Level 1.8 Albumin 4.6 Medications Medications Current Medications Aspirin (Halfprin) 81 mg DAILY PO Last administered on 07/21/17 09:23; Admin Dose 81 MG; Start 07/15/17 at 09:00 Metoprolol Tartrate (Lopressor) 25 mg BID PO Last administered on 07/21/17 09 :23; Admin Dose 25 MG; Start 07/15/17 at 09:00 Nitroglycerin (Nitroglycerin (Sl Tab) 0.4 Mg) 1 tab Q5M PRN SL ANGINA Last administered on 07/17/17 14:10; Admin Dose 1 TAB; Start 07/14/17 at 23:30 Enoxaparin Sodium (Lovenox) 40 mg DAILY SC Last administered on 07/20/17 09: 40; Admin Dose 40 MG; Start 07/15/17 at 09:00 Nicotine (Nicoderm 21 Mg/ 24hr) 1 patch DAILY TRANSDERM Last administered on 09:24; Admin Dose 1 PATCH; Start 07/15/17 at 09:00 Isosorbide Dinitrate (Isordil) 20 mg TID PO Last administered on 07/21/17 09: 23; Admin Dose 20 MG; Start 07/15/17 at 21:00 Pantoprazole (Protonix Tab) 40 mg DAILY@06 PO Last administered on 07/21/17 07:23; Admin Dose 40 MG; Start 07/17/17 at 06:00 Acetaminophen (Tylenol Tab) 650 mg Q4H PRN PO PAIN AND OR ELEVATED TEMP Last administered on 07/20/17 16:40; Admin Dose 650 MG; Start 07/17/17 at 14:30 Levothyroxine Sodium (Synthroid) 12.5 mcg DAILY@06 PO Last administered on 07:23; Admin Dose 12.5 MCG; Start 07/19/17 at 06:00 Salmeterol Xinafoate/ Fluticasone (Advair 250/50 Diskus) 1 inh BID INH Last administered on 07/21/17 09:22; Admin Dose 1 INH; Start 07/20/17 at 11:30 Carisoprodol (Soma) 350 mg TID PRN PO muscle spasm Last administered on 09:23; Admin Dose 350 MG; Start 07/20/17 at 11:00 Lorazepam (Ativan) 1 mg Q6H PRN PO ANXIETY Last administered on 07/21/17 09: 23; Admin Dose 1 MG; Start 07/20/17 at 17:00 Ranolazine (Ranexa) 1,000 mg Q12 PO Last administered on 07/21/17 09:23; Admin Dose 1,000 MG; Start 07/20/17 at 21:00 APRYL ROGERS MD Jul 21, 2017 10:37
[2017-07-21] MEDS ORDERED: RANO500T2 PO (10:44)
[2017-07-21] MEDS ORDERED: ASPI-664 PO (10:44)
[2017-07-21] MEDS ORDERED: NIT4 SL (10:44)
[2017-07-21] MEDS ORDERED: ALBU8.5H3 INH (10:44)
[2017-07-21] MEDS ORDERED: METO-448 PO (10:44)
[2017-07-21] MEDS ORDERED: LORA1TAB PO (10:44)
[2017-07-21] MEDS ORDERED: ADV25050 INH (10:44)
[2017-07-21] MEDS ORDERED: ISOS20TA19 PO (10:44)
[2017-07-21] MEDS ORDERED: LEVO25TA53 PO (10:44)
--- NOTE | 2017-07-21 10:51 | DS ---
Date/Time of Note Date/Time of Note DATE: 07/21/17 TIME: 10:51 Discharge Summary Admission/Discharge Info Admit Date/Time Jul 14, 2017 at 22:05 Discharge Date/Time Discharge Diagnosis 1. Chest pain, Acute coronary syndrome ruled out 2. Shortness of breath secondary to emphysema 3. Nicotine dependence 4. Subclinical hypothyroidism 5. Mood disorder Patient Condition: Good Consults Cardiology- Dr. Ortega Hx of Present Illness This is a 62-year-old male with no significant past medical history who presented to the ER complaining of sudden onset of chest pain. Pain was located in the mid chest and slightly left-sided with radiation to his left arm. Denied shortness of breath, nausea, vomiting or diaphoresis. Patient not sure if it is exertional. Presents to the ER, vitals stable. First troponin is negative and EKG was no ST-T wave abnormalities. Hospital Course Patient was admitted for chest pain workup and Cardiology was consulted. Workup revealed negative serial troponins. ECHO was performed and showed NL EF. Lexiscan was also performed and showed no ischemia. Patient was still experiencing persistent chest pain with shortness of breath and was started on Ranexa. CTA was performed as well to rule out any pulmonary etiology given history of 53 year pack history and episodes of near syncope secondary to shortness of breath. CTA showed emphysematous changes but no other acute issues. He was started on bronchodilators. Based on history, patients chest pain seems to be triggered by anxiety and frustration and started on low dose Ativan as needed. Patients symptoms improved and eventually subsided with medical therapy. Patient was discharged in good condition with plans to follow up with Cardiology as well as establish care with a new PCP. Home Meds Active Scripts Albuterol Sulfate* (Proair HFA*) 8.5 Gm Hfa.aer.ad, 2 PUFF INH Q4H Y for WHEEZING AND SOB, #1 INHALER Prov:APRYL ROGERS MD 07/21/17 Levothyroxine Sodium* (Levothyroxine Sodium*) 25 Mcg Tablet, 12.5 MCG PO DAILY@ 06 for 30 Days, #30 TAB Prov:APRYL ROGERS MD 07/21/17 Salmeterol Xinaf/Fluticasone* (Advair*) 250-50 Diskus Inhaler, 1 INH INH BID for 30 Days, #1 DISK 1 Refill Prov:APRYL ROGERS MD 07/21/17 Lorazepam* (Lorazepam*) 1 Mg Tablet, 1 MG PO Q6H Y for ANXIETY for 10 Days, #20 TAB Prov:APRYL ROGERS MD 07/21/17 Aspirin* (Aspirin* EC) 81 Mg Tablet.dr, 81 MG PO DAILY for 30 Days, #30 TAB Prov:APRYL ROGERS MD 07/21/17 Ranolazine* (Ranexa*) 500 Mg Tab.sr.12h, 1000 MG PO Q12 for 30 Days, #60 TAB Prov:APRYL ROGERS MD 07/21/17 Nitroglycerin* (Nitrostat*) 0.4 Mg Tab.subl, 1 TAB SL Q5M Y for ANGINA for 30 Days, #90 TAB Prov:APRYL ROGERS MD 07/21/17 Metoprolol Tartrate* (Lopressor*) 25 Mg Tab, 25 MG PO BID for 30 Days, #60 TAB Prov:APRYL ROGERS MD 07/21/17 Isosorbide Dinitrate* (Isosorbide Dinitrate*) 20 Mg Tablet, 20 MG PO TID for 30 Days, #90 TAB Prov:APRYL ROGERS MD 07/21/17 Follow-up Plan 1. Take all medications as prescribed 2. Take Ativan as needed for anxiety/frustration that may manifest as chest pain or shortness of breath 3. After each use of Advair inhaler, remember to rinse out your mouth 4. Use ProAir as needed when experiencing shortness of breath 5. Follow up with new Primary care physician as soon as possible Primary Care Provider Luma Fischer Time spent on discharge: > 30 minutes Pending Labs Laboratory Tests Test 07/21/17 07:38 White Blood Count 4.410^3/ul (4.8-10.8) Red Blood Count 4.5910^6/ul (4.70-6.10) Hemoglobin 13.1g/dl (14.0-18.0) Hematocrit 41.8% (42.0-52.0) Mean Corpuscular Volume 91.1fl (82.0-101.0) Mean Corpuscular Hemoglobin 28.5pg (29.0-33.0) Mean Corpuscular Hemoglobin Concent 31.3g/dl (32.0-37.0) Red Cell Distribution Width 13.3% (11.5-14.5) Platelet Count 19723^3/UL (140-415) Mean Platelet Volume 10.7fl (7.4-10.4) Neutrophils % 61.1% (39.0-77.0) Lymphocytes % 31.4% (15.0-51.0) Monocytes % 4.8% (0.0-11.0) Eosinophils % 1.1% (0.0-7.0) Basophils % 0.9% (0.0-2.0) Nucleated Red Blood Cells % 0.0/100WBC (0.0-0.0) Neutrophils # 2.710^3/ul (1.6-7.5) Lymphocytes # 1.410^3/ul (0.8-2.9) Monocytes # 0.210^3/ul (0.3-0.9) Eosinophils # 0.110^3/ul (0.0-0.5) Basophils # 0.010^3/ul (0.0-0.1) Nucleated Red Blood Cells # 0.010^3/ul (0.0-0.0) Sodium Level 146mmol/L (135-144) Potassium Level 4.0mmol/L (3.5-5.1) Chloride Level 109mmol/L (97-110) Carbon Dioxide Level 22mmol/L (21-31) Anion Gap 19 (8-16) Blood Urea Nitrogen 14mg/dl (7-20) Creatinine 1.00mg/dl (0.61-1.24) Glucose Level 135mg/dl (70-220) Calcium Level 9.6mg/dl (8.4-10.2) Phosphorus Level 3.2mg/dl (2.5-4.9) Magnesium Level 1.8mg/dl (1.7-2.5) Albumin 4.6g/dl (3.3-4.9) Please send a copy of discharge summary to PCP APRYL ROGERS MD Jul 21, 2017 10:51 APRYL ROGERS MD Jul 21, 2017 10:51
--- NOTE | 2017-07-21 10:51 | PDOCDIS ---
Discharge Instructions DIAGNOSIS Discharge Diagnosis 1. Chest pain, Acute coronary syndrome ruled out 2. Shortness of breath secondary to emphysema 3. Nicotine dependence 4. Subclinical hypothyroidism 5. Mood disorder CONDITION Patient Condition: Good HOME CARE INSTRUCTIONS: Diet Instructions: Low Fat /CholesterolSpecial Diet: LOW FAT LOW CHOL ACTIVITY: Activity Restrictions: No Restrictions FOLLOW UP/APPOINTMENTS Follow-up Plan 1. Take all medications as prescribed 2. Take Ativan as needed for anxiety/frustration that may manifest as chest pain or shortness of breath 3. After each use of Advair inhaler, remember to rinse out your mouth 4. Use ProAir as needed when experiencing shortness of breath 5. Follow up with new Primary care physician as soon as possible SCHOOL/WORK RELEASE May return to School/Work on: Jul 25, 2017 May return to School/Work with: No Restrictions APRYL ROGERS MD Jul 21, 2017 10:51
[2017-07-21] MEDS: ACETAMINOPHEN 325 MG TAB PO PRN (16:04)
--- NOTE | 2017-07-21 17:53 | CONS ---
Date/Time of Note Date/Time of Note DATE: 07/21/17 TIME: 17:51 Assessment/Plan Assessment/Plan Chief Complaint/Hosp Course IMPRESSION: 1. Chest pain, assess for acute coronary syndrome.-negative trop x 3/NL EF by echo/ No ischemia and NL by lexiscan. ? Vasospasm/GI 2. Abnormal electrocardiogram, assess for acute coronary syndrome. 3. Hypertension, under reasonable control with some elevations recently. 4. Prior tobacco intake. 5. Increased TSH. 6. Dyslipidemia with low HDL. Recc: -Tele -continue BB/isordil s/p increase ranexa with improved sx -Will consider low dose CCB as tolerated for additional possible treatment of spasm -Contineu asa -smoking cessation -started on benzo's -D/C plannig with ouitpatient f/u. [facility] for a f[facility]u appt Problems: Consultation Date/Type/Reason Admit Date/Time Jul 14, 2017 at 22:05 Initial Consult Date 07/15/2017 Type of Consultation: cardiology Reason for Consultation chest pain Referring Provider: APRYL ROGERS MD Exam/Review of Systems Vital Signs Vitals Vital Signs Date Time Temp Pulse Resp B/P Pulse Ox O2 Delivery O2 Flow Rate FiO2 07/21/17 16:00 Nasal Cannula 2.0 07/21/17 15:49 98.4 75 18 112/65 97 07/21/17 14:36 21 Intake and Output 07/20/17 07/20/17 07/21/17 15:00 23:00 07:00 Intake Total 850 ml Balance 850 ml Exam Review of Systems: CONSTITUTIONAL: No fevers, chills. PULMONARY: No sob CARDIOVASCULAR: No chest pain/palpitations GASTROINTESTINAL: No nausea/vomiting. GENITOURINARY: No hematuria/dysuria. MUSCULOSKELETAL: No myagias/arthalgias. PSYCHIATRIC: The patient denies depression. NEUROLOGIC: No weakness Constitutional: alert, oriented Psych: no complaints Head: normocephalic ENMT: mucosa pink and moist Neck: jvd, supple Respiratory: diminished breath sounds Cardiovascular: regular rate and rhythm Gastrointestinal: soft Musculoskeletal: muscle tone Extremities: edema, normal pulses Neurological: other (No focal deficits) Results Result Diagram: 07/21/17 0738 07/21/17 0738 Results 24 hrs Laboratory Tests Test 07/21/17 07:38 White Blood Count 4.4 L Red Blood Count 4.59 L Hemoglobin 13.1 L Hematocrit 41.8 L Mean Corpuscular Volume 91.1 Mean Corpuscular Hemoglobin 28.5 L Mean Corpuscular Hemoglobin Concent 31.3 L Red Cell Distribution Width 13.3 Platelet Count 219 Mean Platelet Volume 10.7 H Neutrophils % 61.1 Lymphocytes % 31.4 Monocytes % 4.8 Eosinophils % 1.1 Basophils % 0.9 Nucleated Red Blood Cells % 0.0 Neutrophils # 2.7 Lymphocytes # 1.4 Monocytes # 0.2 L Eosinophils # 0.1 Basophils # 0.0 Nucleated Red Blood Cells # 0.0 Sodium Level 146 H Potassium Level 4.0 Chloride Level 109 Carbon Dioxide Level 22 Anion Gap 19 H Blood Urea Nitrogen 14 Creatinine 1.00 Glucose Level 135 # Calcium Level 9.6 Phosphorus Level 3.2 Magnesium Level 1.8 Albumin 4.6 Medications Medications Current Medications Aspirin (Halfprin) 81 mg DAILY PO Last administered on 07/21/17 09:23; Admin Dose 81 MG; Start 07/15/17 at 09:00 Metoprolol Tartrate (Lopressor) 25 mg BID PO Last administered on 07/21/17 09 :23; Admin Dose 25 MG; Start 07/15/17 at 09:00 Nitroglycerin (Nitroglycerin (Sl Tab) 0.4 Mg) 1 tab Q5M PRN SL ANGINA Last administered on 07/17/17 14:10; Admin Dose 1 TAB; Start 07/14/17 at 23:30 Enoxaparin Sodium (Lovenox) 40 mg DAILY SC Last administered on 07/21/17 09: 00; Admin Dose 40 MG; Start 07/15/17 at 09:00 Nicotine (Nicoderm 21 Mg/ 24hr) 1 patch DAILY TRANSDERM Last administered on 09:24; Admin Dose 1 PATCH; Start 07/15/17 at 09:00 Isosorbide Dinitrate (Isordil) 20 mg TID PO Last administered on 07/21/17 16: 11; Admin Dose 20 MG; Start 07/15/17 at 21:00 Pantoprazole (Protonix Tab) 40 mg DAILY@06 PO Last administered on 07/21/17 07:23; Admin Dose 40 MG; Start 07/17/17 at 06:00 Acetaminophen (Tylenol Tab) 650 mg Q4H PRN PO PAIN AND OR ELEVATED TEMP Last administered on 07/21/17 16:04; Admin Dose 650 MG; Start 07/17/17 at 14:30 Levothyroxine Sodium (Synthroid) 12.5 mcg DAILY@06 PO Last administered on 07:23; Admin Dose 12.5 MCG; Start 07/19/17 at 06:00 Salmeterol Xinafoate/ Fluticasone (Advair 250/50 Diskus) 1 inh BID INH Last administered on 07/21/17 09:22; Admin Dose 1 INH; Start 07/20/17 at 11:30 Carisoprodol (Soma) 350 mg TID PRN PO muscle spasm Last administered on 16:04; Admin Dose 350 MG; Start 07/20/17 at 11:00 Lorazepam (Ativan) 1 mg Q6H PRN PO ANXIETY Last administered on 07/21/17 16: 04; Admin Dose 1 MG; Start 07/20/17 at 17:00 Ranolazine (Ranexa) 1,000 mg Q12 PO Last administered on 07/21/17 09:23; Admin Dose 1,000 MG; Start 07/20/17 at 21:00 JORGE TONY Jul 21, 2017 17:53
--- NOTE | 2017-07-21 18:30 | RADRPT ---
Vent Rate: 75 bpm RR Interval: 0 msec [place] Interval: 144 msec QRS Duration: 96 msec QT Interval: 370 msec QTC Interval: 413 msec P-R-T [place]: 63 - -69 - 59 degrees Normal sinus rhythm with sinus arrhythmia Incomplete right bundle branch block Left anterior fascicular block Nonspecific T wave abnormality Abnormal ECG Electronically Signed By: Rubin Ortega [id number]
== END 2017-07-21 19:13 | disposition home or self-care (01) | DRG 313 ==
LOC: E/R 19:53 → MS4 22:05
PROVIDERS: ADMIT Internal Medicine; ATTEND Internal Medicine
DX: R07.89 Other chest pain (principal); J43.9 Emphysema, unspecified; I10 Essential (primary) hypertension; Z72.0 Tobacco use; E86.0 Dehydration; E02 Subclinical iodine-deficiency hypothyroidism; R00.1 Bradycardia, unspecified; D64.9 Anemia, unspecified; E78.5 Hyperlipidemia, unspecified; I44.4 Left anterior fascicular block
CPT/HCPCS: 36415; 71010; 71275; 78452; 80048; 80053; 80061; 80069; 83036; 83690; 83735; 83880; 84100; 84439; 84443; 84484; 85025; 90686; 93005; 93017; 93306; 94640; 94664; 96374; A9500; A9505; C9113; J1650; J2270; J2785; J7030; Q9967

== ENCOUNTER 2018-09-21 10:21 | Emergency (ER) | END 2018-09-21 12:18 | disposition home or self-care (01) ==